=== PATIENT | female | born 1955 | race Caucasian/White ===

== ENCOUNTER → 2020-09-14 14:05 | Outpatient (BNVA) | payer OTHER, SELFPAY | PROVIDERS: Visit Provider Internal Medicine | DX: B19.10 Unspecified viral hepatitis B without hepatic coma (principal) | CPT/HCPCS: 99212 ==

== ENCOUNTER 2020-11-25 09:50 | Outpatient (REF) | payer OTHER, SELFPAY ==
--- NOTE | 2020-11-25 09:54 | US_ITS ---
EXAMINATION: US COMPLETE ABDOMEN WITH LIVER ELASTOGRAPHY CLINICAL INFORMATION: Viral hepatitis B without hepatic coma. COMPARISON: Ultrasound abdomen 06/27/2019. TECHNIQUE: Real-time imaging of the abdominal viscera. Noninvasive ultrasound liver fibrosis assessment is performed using Michel ElastPQ point quantification shear wave elastography (pSWE) with a 5 MHz transducer. Multiple elastography samples are obtained. FINDINGS: PANCREAS: Normal. The visualized pancreatic head and body are normal in appearance. The remainder of the pancreas is obscured from visualization by the overlying bowel gas. ABDOMINAL AORTA: The proximal, middle, and distal aortic segments are normal in caliber. INFERIOR VENA CAVA: Visualized portions are normal. LIVER: The liver demonstrates normal size, contour and echogenicity. No focal lesion or intrahepatic biliary duct dilatation. The right lobe measures 12.1 cm in length. The left lobe measures 11.7 cm in length. There is normal hepatopedal flow seen in main portal vein. There is a heterogenous lesion in the left hepatic lobe measuring 1.2 x 0.8 x 1.3 cm, new since the previous study. Shear wave elastography provides a median stiffness of 1.06 m/s (reference: normal median stiffness is 0.81 - 1.22 m/s). The IQR/median stiffness to assess sampling precision is 0.13 (reference: optimal IQR/median stiffness is under 0.3). GALLBLADDER: Normal. The gallbladder is physiologically distended without evidence of stones, sludge, polyps, wall thickening or pericholecystic fluid. COMMON BILE DUCT: Normal in caliber measuring 0.82 cm in diameter. RIGHT KIDNEY: There are 3 anechoic cysts seen. 1. A 2.4 x 2.2 x 2.1 cm upper pole. 2. A 4.1 x 3.3 x 3.4 cm midpole. 3. A 0.5 x 0.5 x 0.6 cm lower pole cyst. No hydronephrosis. No renal calculi or focal parenchymal lesions. The kidney measures 10.9 cm in maximum dimension. LEFT KIDNEY: Small cyst lower pole measuring 0.5 x 0.3 x 0.5 cm. No hydronephrosis. No renal calculi or focal parenchymal lesions. The kidney measures 9.8 cm in maximum dimension. SPLEEN: Normal. The spleen measures 7.5 cm in maximum dimension. FREE FLUID: None. US/US abdomen comp w elastography IMPRESSION: 1. Hyperechoic lesion left hepatic lobe. Question complex cyst. Multiple right renal cysts. 2. Elastography: Liver elastography measurements are within normal (METAVIR Stage F0).
== END 2020-11-25 09:51 | disposition home or self-care (01) ==
LOC: HO.US 09:50
PROVIDERS: Visit Provider Internal Medicine
DX: B19.10 Unspecified viral hepatitis B without hepatic coma (principal)
CPT/HCPCS: 76705; 76981

== ENCOUNTER 2025-11-11 10:06 | Outpatient (AMB) | payer OTHER, SELFPAY ==
[2025-11-11 10:10] VITALS: BMI 30.5
--- NOTE | 2025-11-11 10:10 | A.PHYSOV_ITS ---
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 Patient is having lower back pain. Machine Skiver Required: No Allergies morphine (MORPHINE) Allergy (Severe, Verified 11/11/25 10:11) ANAPHYLAXIS oxycodone (From Percocet) Allergy (Mild, Verified 11/11/25 10:11) ITCHING HPI Comments Details: History of Present Illness The patient is a 70-year-old female presenting for evaluation of intermittent back and sciatic nerve pain. She reports having these on-and-off problems since a work injury a long time ago. The last episode of significant pain was about a week ago. Past treatments include physical therapy, career and guidance counselor, and two injections, which she reports were not helpful. For self-management of pain, she lies down and uses pain patches given to her by her sister. Her symptoms are worse with activity and improved with rest. We do have MRI of the lumbar spine reported below. Patient reports marked improvement of her symptoms at this time. I reviewed the referring provider's no prior to consultation. Pain Description - Onset: The patient reports the pain started a long time ago after a work injury and has been intermittent since. - Location: Pain is primarily located in her low back. - Radiation: The pain radiates down her right leg. - Severity: The patient describes her current pain as - Exacerbating Factors: Bending forward causes pain, while bending backward causes discomfort. - Relieving Factors: She lies down to alleviate the pain. Results - MRI Lumbar Spine (10/06): Findings reveal a very good condition with very mild degenerative disc disease, very tiny disc bulges without nerve impingement, and a little bit of arthritis. [facility] Medical History (Updated 11/11/25 @ 11:49 by CARLOS Taylor) Hepatitis B Social History (Updated 11/11/25 @ 10:12 by Qing Smith MA) Alcohol intake: current Alcohol intake frequency: does not drink Patient Tobacco Use Status: Never used Tobacco Review of Systems Narrative Review of Systems - Musculoskeletal: Reports intermittent low back pain. - Neurological: Reports sciatic pain that radiates down the right leg. - Genitourinary: Denies groin pain, but notes it can occur when back pain is severe and wraps around. Physical Exam Exam Exam: Physical Exam Lumbar Spine: Examination of her lumbar spine, she is tender to the right lower lumbar facets and right sacroiliac joint. She has full range of motion of the lumbar spine with pain. She does have an increase in pain with facet loading. Special Tests: Lhermittes sign was negative Heel Toe walk is normal Left straight leg raise: Negative Right straight leg raise: Negative Special tests Jeremi test is positive right Ganslen's test is positive right SI Joint compression test positive right Sami test negative Piriformis stretch is negative Lower Extremities: Full range of motion bilateral lower extremities. No calf pain or edema. Neuro: Sensation: Intact to lower extremities bilaterally Strength L2 (Psoas): 5/5 on the left and 5/5 on the right. L3 (Quads): 5/5 on the left and 5/5 on the right. L4 (Ant tibialis): 5/5 on the left and 5/5 on the right. L5 (EHL) 5/5 on the left and 5/5 on the right. S1 (Gastroc): 5/5 on the left and 5/5 on the right. DTR L4: (Patellar) Left 2 Right 2 S1: (Achilles) Left 2 Right 2 Babinski Downgoing No pathologic clonus. No involuntary movement. Vital Signs: BMI result Body Mass Index 30.5 Assessment & Plan Assessment & Plan (1) Sacroiliitis: Code(s): M46.1 - Sacroiliitis, not elsewhere classified Category: Medical (2) Lumbar spondylosis: Code(s): M47.816 - Spondylosis without myelopathy or radiculopathy, lumbar region Category: Medical Plan Pain Management - Analgesia: The patient currently uses patches for pain relief and lies down when experiencing pain. - Activities of Daily Living: When the pain is severe, she is unable to bend backward. Plan Patient was informed and verbally consented to the use of an ambient scribe for clinic note documentation during this visit. 1. Low Back Pain With Right-Sided Sciatica The patient's recent lumbar MRI from October 06 was reviewed and shows a spine in very good condition, with only mild degenerative disc disease and tiny disc bulges that do not impinge on any nerves. Based on physical exam findings of localized tenderness, the pain is suspected to be originating from the right sacroiliac (SI) joint, possibly due to arthritis. As the patient is feeling well currently, she has opted to monitor her symptoms. She was advised to return to the clinic for further management if the pain returns. Discussed future treatment options including conservative measures like physical therapy, career and guidance counselor, and medications, as well as a potential SI joint injection. Discussion Notes I reviewed the patient's lumbar MRI from October 06 and explained that her spine is in very good condition with only mild degenerative changes and tiny disc bulges, which are not compressing any nerves. I informed her that while the MRI is reassuring, I acknowledge her pain and suspect it may be originating from her right sacroiliac (SI) joint due to tenderness on examination and possible developing arthritis. I discussed various treatment options, including conservative management like Tylenol, anti-inflammatories, physical therapy, and career and guidance counselor. I also mentioned the possibility of an SI joint injection in the future if she has a severe flare-up, noting that her previous unsuccessful injections may not have targeted the correct area. I reassured her that surgery is not indicated. The patient decided to monitor her symptoms for now since she is currently feeling well. I advised her to return if her pain worsens, at which point we can re-evaluate and proceed with a plan that aligns with her preferences, whether it be therapy, medication, or other options. Patient Instructions - Your recent MRI of your back shows that your spine is in very good shape. - We believe your pain is most likely coming from a joint in your lower back and buttock area called the sacroiliac (SI) joint. - Since you are feeling better today, we will wait and see how you do. - Please come back to the clinic if your pain gets worse. - When you return, we can discuss treatment options like physical therapy, career and guidance counselor, medications, or an injection to help your pain. - We will work with you to decide on a treatment plan you are comfortable with. Coding Level of Care Code New Pt Level 4 (70358) Diagnoses Sacroiliitis M46.1 Lumbar spondylosis M47.816
--- OUTSIDE RECORDS SUMMARY | 2025-11-11 13:21 | XMS_ITS | Clinical Summary ---
Author Organization [facility] Address [address] [place] [phone] Phone Care Team Providers Care Operating Room Aide Name Role Phone Moises Howard MD Primary Care Provider [phone] Allergies Active Allergy Reactions Criticality Noted Date Comments Codeine 01/19/2021 Upset stomach Morphine Other,Unknown 01/19/2021 Pt states she stops breathing Oxycodone-Acetaminophen Itching 04/23/2025 Medications acetaminophen (TYLENOL 8 HOUR) 650 mg 8 hr tablet Take 1 tablet (650 mg total) by mouth. 1 Active albuterol HFA (PROAIR HFA ; PROVENTIL HFA ; VENTOLIN HFA) 90 mcg/actuation inhaler Inhale 2 puffs by mouth every 4 (four) hours if needed for wheezing or shortness of breath. every 4 to 6 hours as needed 5 Active bisacodyL (DULCOLAX) 5 mg EC tablet Take 1 tablet (5 mg total) by mouth 1 (one) time each day if needed. 3 Active butalbital-acet aminophen-caffe ine (ESGIC) 50-325-40 mg per capsule Take 1 capsule by mouth Every 4 hours as needed. 3 Active cetirizine (ZyrTEC) 10 mg tablet Take 1 tablet (10 mg total) by mouth 1 (one) time each day. Active cyclobenzaprine (FLEXERIL) 5 mg tablet Take 1 tablet (5 mg total) by mouth 2 (two) times a day. 3 Active Auvelity 45-105 mg tablet, IR and ER, biphasic take 1 tablet by mouth every day in the morning for 90 days 5 Active escitalopram (Lexapro) 20 mg tablet Take 1 tablet (20 mg total) by mouth 1 (one) time each day. 0 Active fluticasone propionate (FLONASE) 50 mcg/actuation nasal spray Administer 2 sprays into each nostril 1 (one) time each day. Active Breo Ellipta 100-25 mcg/dose inhaler Inhale 1 puff by mouth 1 (one) time each day. Active LORazepam (ATIVAN) 0.5 mg tablet Take 1 tablet (0.5 mg total) by mouth 2 (two) times a day if needed for anxiety. 5 Active pantoprazole (PROTONIX) 40 mg EC tablet Take 1 tablet (40 mg total) by mouth 1 (one) time each day before breakfast. Active propranoloL (INDERAL) 80 mg tablet Take 1 tablet (80 mg total) by mouth 2 (two) times a day. Active sertraline (ZOLOFT) 50 mg tablet Take 1 tablet (50 mg total) by mouth 1 (one) time each day. Active SUMAtriptan (IMITREX) 50 mg tablet Take 1 tablet (50 mg total) by mouth 1 (one) time if needed. Active Mounjaro 5 mg/0.5 mL injection Inject 0.5 mL (5 mg total) under the skin every 7 (seven) days. Active topiramate (TOPAMAX) 50 mg tablet Take 1 tablet (50 mg total) by mouth 1 (one) time each day. Active amoxicillin (AMOXIL) 500 mg capsule 1 capsule (500 mg total) every 8 hours. 5 Active Lubricant Eye Drops 0.5 % ophthalmic solution Administer 1 drop into both eyes 2 (two) times a day. 5 Active ciprofloxacin-d exAMETHasone (CIPRODEX) otic suspension TAKE 4 DROPS INTO BOTH EARS EVERY 12 HOURS FOR 7 DAYS 5 Active Restasis 0.05 % ophthalmic emulsion Administer 1 drop into both eyes 2 (two) times a day. 5 Active montelukast (SINGULAIR) 10 mg tablet TAKE 1 TABLET BY MOUTH EVERY DAY; Duration: 90 0 Active Active Problems Problem Noted Date Diagnosed Date Amnesia 06/16/2025 Anemia due to vitamin B12 deficiency 06/16/2025 Class 1 obesity 06/16/2025 Migraine without aura and responsive to treatmen t 06/16/2025 Osteoarthritis of knee 06/16/2025 Acute non-recurrent frontal sinusitis 04/23/2025 Acute pharyngitis 04/23/2025 Acute right-sided low back pain with right-sided sciatica 04/23/2025 Adjustment reaction with anxiety and depression 04/23/2025 Ataxia 04/23/2025 Chronic rhinitis 04/23/2025 Cough 04/23/2025 Daytime somnolence 04/23/2025 Diverticulitis 04/23/2025 Vertigo 04/23/2025 Generalized anxiety disorder 04/23/2025 Hypothyroidism 04/23/2025 Lower abdominal pain 04/23/2025 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 Dr. Drake reviewed patient's MRI, then came in and saw the patient today, explained the treatment for this problem would be L4-5, L5-S1 fusion. Patient describes her back and right >left radicular pain as moderate overall, 5-8/10 on an average day, not significantly limiting her daily activities where she would consider surgery at this time. We talked about trying acupuncture, aquatic therapy, weight loss, core strengthening. She would like to pursue conservative treatments. I reviewed patient's MRI with her on the computer as well. She also has significant bilateral knee pain, previous diagnosis and treatment for knee osteoarthritis, she is considering cortisone injections in the knees. Chest pain 01/19/2021 Overview (04/23/2025): Last Assessment & Plan: The patient continues with occasional episodes of atypical chest discomfort. Exercise stress test and echocardiogram did not reveal significant abnormalities. Given the description of her symptoms and the cardiac test results, there is a low probability that her symptoms are due to ischemic heart disease. It is more likely that her symptoms are due to musculoskeletal chest discomfort. No further cardiac testing is needed at this time. Essential hypertension 01/19/2021 Overview (04/23/2025): Last Assessment & Plan: The patient has a history of arterial hypertension. The patient's blood pressure today was noted to be well controlled. We'll continue the current antihypertensive medication regimen. Palpitations 01/19/2021 Overview (04/23/2025): Last Assessment & Plan: The patient continues with occasional episodes of palpitations. Her episodes of palpitations last for several seconds per episode. She underwent a Holter monitor that showed rare PACs and one 3 beat atrial run. It is likely that her palpitations are due to symptomatic PACs. The patient is already on beta-krish therapy with propanolol. I had a conversation with the patient regarding the possible triggers of symptomatic PACs, including: Cigarette smoking, alcohol consumption, caffeine, stress, and inadequate sleep. The patient will attempt to address the risk factors for symptomatic PVCs. Otherwise, we will continue her current therapy with propanolol. Dizziness 01/18/2021 Hyperglycemia 09/02/2013 Hyperlipidemia 09/02/2013 Overview (04/23/2025): Last Assessment & Plan: The patient was noted with mild hyperlipidemia. Her last lipid panel showed a total cholesterol of 210, triglycerides 142, HDL 69, and LDL 113. Lifestyle modifications were encouraged during today's visit. I will repeat her lipid panel on her next appointment in order to determine if she needs to be considered for statin therapy. Encounters Date Type Department Care Team Description 10/22/2025 10:19 AM EST - 10/22/2025 11:59 PM EST Hospital Encounter [facility] Ultrasound [address] [place] [address] Thyroid nodule Discharge Disposition: Home or Self Care 10/07/2025 10:48 AM EST - 10/07/2025 11:59 PM EST Hospital Encounter [facility] Ultrasound [address] [place] [address] Discharge Disposition: Home or Self Care 10/06/2025 6:53 PM EST - 10/06/2025 11:59 PM EST Hospital Encounter [facility] MRI [address] [place] [address] Radiculopathy, lumbar region Discharge Disposition: Home or Self Care 08/25/2025 2:20 PM EDT - 08/25/2025 11:59 PM EDT Hospital Encounter [facility] Bone Density [address] [place] [address] Encounter for screening for osteoporosis Discharge Disposition: Home or Self Care 08/20/2025 7:56 AM EDT - 08/20/2025 11:59 PM EDT Hospital [facility] [address] [phone] Encounter for screening mammogram for breast cancer Discharge Disposition: Home or Self Care from Last 3 Months Immunizations Immunization Administration Dates Next Due Influenza Quadravalent, [place] mbinant, 0.5ml, preservative free (Flublok) 18yo and older 08/04/2020 Influenza trivalent, with pr eservative (Fluzone; Afluria) 6mo and older 10/04/2022,08/20/2013 Surgical History Surgery Date Site/Laterality Comments HYSTERECTOMY PROCEDURE: HISTORICAL HYSTERECTOMY CHOLECYSTECTOMY N/A PROCEDURE: HISTORICAL CHOLECYSTECTOMY; COMMENT: Gallbladder surgery BACK SURGERY 05/12/2017 Right PROCEDURE: HISTORICAL BACK SURGERY; COMMENT: Right L4-5 discectomy, Dr. Drake BACK SURGERY Right PROCEDURE: HISTORICAL BACK SURGERY; COMMENT: right L5-S1 discectomy (? 2012) Medical History Medical History Date Comments Seasonal allergies DX:Seasonal a llergies Depression DX:Depression HTN (hypertension) DX:HTN (hyper tension) Migraine DX:Migraine; COM MENT: chronic, botox with Dr Barcenas, helps approx 8 weeks. Mild intermittent asthma, uncomplicated DX:Mild intermittent asthma, uncomplicated; COMMENT: allergy season typically Diverticulosis DX:Diverticulosi s Family History Medical History Relation Name Comments Hypertension Father Other: heart disease Maternal Grandfather Breast cancer Mother Diabetes Mother Other: heart disease Mother Relation Name Status Comments Father Alive Maternal Grandfather Mother Alive Social History Tobacco Use Types Packs/Day Years Used Date Smoking Tobacco: Never Smokeless Tobacco: Never Tobacco Cessation:Counseling Given: Not Answered Alcohol Use Standard Drinks/Week Comments No 0 (1 standard drink = 0.6 oz pur e alcohol) Comments No Sex and Gender Information Value Date Recorded Sex Assigned at Female 03/31/2025 2:42 PM EDT Legal Sex Female 8:51 AM EST Gender Identity Female 03/31/2025 2:42 PM EDT Sexual Orientation Not on file Obstetrics History Para Term AB IAB SAB Ectopic Multiple Livin g Live Births 6 Last Filed Vital Signs Vital Sign Reading Time Taken Comments Blood Pressure 128/72 06/16/2025 2:19 PM EDT Pulse 80 06/16/2025 2:19 PM EDT Temperature 36.1 C (97 F) 06/16/2025 2:19 PM EDT Respiratory Rate 20 06/16/2025 2:19 PM EDT Oxygen Saturation 98% 06/16/2025 2:19 PM EDT Inhaled Oxygen Concentration - - Weight 80.7 kg (178 lb) 08/20/2025 8:34 AM EDT Height 162.6 cm (5' 4 ) 08/20/2025 8:34 AM EDT Body Mass Index 30.55 08/20/2025 8:34 AM EDT Plan of Treatment Upcoming Encounters Date Type Department Care Team (Late st Contact Info) Description 11/20/2025 9:30 AM EST Office Visit Neurosurgery [facility] [address] [place] [address] Keyshawn Reno PA [address] [place] [address] Health Maintenance Due Date Last Done Comments Colorectal Cancer Screening: Colonoscopy 1955 Drug Screen 1955 Non-Opioid Controlled Substance Agreement 1955 DTaP,Tdap,and Td Vaccines (1 - Tdap) 1976 Pneumococcal Vaccine: 50+ Years (1 of 1 - PCV) 2007 Zoster Vaccines (1 of 2) 2007 Cholesterol Screening (Lipid Panel) 10/16/2022 08/21/2013 Falls Risk Assessment 10/16/2022 Hepatitis C Screening 10/16/2022 Medicare Annual Wellness Visit 10/16/2022 Social Influencers of Health Screening 10/16/2022 Depression Screening 11/13/2024 COVID-19 Vaccine (3 - 2024-2 6 season) 2025 02/28/2021, 02/07/2021 Influenza Vaccine (#1) 2025 , 08/04/2020, 08/20/2013 Hypertension/CHF/CAD Annual BMP Blood Test 06/03/2026 06/03/2025, 08/21/2013 Breast Cancer Screening 08/20/2027 08/20/2025 RSV Immunization Adult Patients (1 - 1-dose 75+ series) 2032 Osteoporosis Screening (Bone Density Screening) 08/25/2035 08/25/2025 HIB Vaccines Aged Out No longer eligi ble based on patient's age to complete this topic HPV Vaccines Aged Out No longer eligi ble based on patient's age to complete this topic Hepatitis A Vaccines Aged Out No long er eligible based on patient's age to complete this topic Hepatitis B Vaccines Aged Out No long er eligible based on patient's age to complete this topic IPV Vaccines Aged Out No longer eligi ble based on patient's age to complete this topic MMR Vaccines Aged Out No longer eligi ble based on patient's age to complete this topic Meningococcal ACWY Vaccine Aged Out N o longer eligible based on patient's age to complete this topic Meningococcal B Vaccine Aged Out No l onger eligible based on patient's age to complete this topic RSV Immunization Patients Under 20 months Aged Out No longer eligible b ased on patient's age to complete this topic Varicella Vaccines Aged Out No longer eligible based on patient's age to complete this topic Procedures Procedure Name Priority Date/Time Associated Diagnosis Comments US GUIDED FINE NDL ASP 1ST LESION Routine 10/22/2025 11:23 AM EST Thyroid nodule FINE NEEDLE ASPIRATION Routine 10/22/2025 10:55 AM EST Thyroid nodule US HEAD NECK SOFT TISSUE STAT 10/07/2025 11:17 AM EST Nontoxic multinodular goiter MR LUMBAR SPINE WO CONTRAST Routine 10/06/2025 7:53 PM EST Radiculopathy, lumbar region BD BONE DENSITY DXA AXIAL SKELETON Routine 08/25/2025 2:50 PM EDT Encounter for screening for osteoporosis MG MAMMO DIGITAL SCREENING W EB BILAT Routine 08/20/2025 8:37 AM EDT Encounter for screening mammogram for breast cancer COMPREHENSIVE METABOLIC PANEL Routine 06/03/2025 9:36 AM EDT Vitamin B12 deficiency anemia Routine general medical examination at a [facility] Screening for thyroid disorder from Last 3 Months or Most Recently Relevant to Health Maintenance Results * US Guided Fine Ndl Asp 1st Lesion (10/22/2025 11:23 AM EST) Anatomical Region Laterality Modality Ultrasound 10/22/2025 1:13 PM EST Narrative 10/29/2025 12:16 PM EST INDICATION: 11 x 7 x 8 mm left lower pole nodule, TI RADS 5 TECHNIQUE: Written informed consent obtained. Patient placed supine on the ultrasound stretcher. Multiple images obtained of the left thyroid. After review of the images, the appropriate area of skin was localized under real-time ultrasound. This region was draped and prepped in the usual sterile fashion. 2% buffered lidocaine was used as a local anesthetic. Under real-time ultrasound guidance, needle biopsy was performed using FNA technique. A total of 3 passes were obtained. . Preliminary pathology demonstrates adequate sampling. Final pathology pending. The patient tolerated the procedure well and left the department in stable condition without immediate complications. FINDINGS: Direct comparison made to study from US head neck soft tissue October 07, 2025 CONCLUSION: Ultrasound-guided biopsy of left thyroid nodule as described above. -------- FINAL REPORT -------- Dictated By: Roselia Amado Dictated Date: 10/22/2025 13:13 ET Assigned Physician: Ashutosh Rodriguez Reviewed and Electronically Signed By: Ashutosh Rodriguez Signed Date: 10/29/2025 12:16 ET Workstation ID: [id number] Transcribed By: Self Edit Transcribed Date: 10/22/2025 13:15 ET Resident/PA/EVENT OPERATIONS MANAGER: Roselia Amado Procedure Note Ashutosh Rodriguez MD - 10/29/2025 INDICATION: 11 x 7 x 8 mm left lower pole nodule, TI RADS 5 TECHNIQUE: Written informed consent obtained. Patient placed supine on theultrasound stretcher. Multiple images obtained of the left thyroid. Afterreview of the images, the appropriate area of skin was localized underreal-time ultrasound. This region was draped and prepped in the usualsterile fashion. 2% buffered lidocaine was used as a local anesthetic.Under real-time ultrasound guidance, needle biopsy was performed using FNAtechnique. A total of 3 passes were obtained. . Preliminary pathologydemonstrates adequate sampling. Final pathology pending. The patienttolerated the procedure well and left the department in stable conditionwithout immediate complications. FINDINGS: Direct comparison made to study from US head neck soft tissueNovember 2024 CONCLUSION: Ultrasound-guided biopsy of left thyroid nodule as described above. -------- FINAL REPORT -------- Dictated By: Roselia Amado Dictated Date: 10/22/2025 13:13 ET Assigned Physician: Ashutosh Rodriguez Reviewed and Electronically Signed By: Ashutosh Rodriguez Signed Date: 10/29/2025 12:16 ET Workstation ID: [id number] Transcribed By: Self Edit Transcribed Date: 10/22/2025 13:15 ET Resident/PA/EVENT OPERATIONS MANAGER: Roselia Amado us Kay Lanza NP IMG US PROCEDURES Final Resul t * Fine needle aspiration (10/22/2025 10:55 AM EST) Final Diagnosis A. Thyroid, Left mid thyroid nodule -fine needle aspiration, (ThinPrep, direct smears): Benign ([place] Category II). Consistent with chronic lymphocytic (Rusty) thyroiditis in the proper clinical context. 10/23/2025 12:[address] [facility] at 1212 EST Specimen A Adequacy Satisfactory for evaluation 10/23/2025 12:[address] [facility] Gross Description A. Thyroid, Left, Left mid thyroid nodule: Received in Cytolyt is 30 ml of pink cloudy fluid. One ThinPrep is made. Also received are 3 air dried direct smears, and 3 alcohol fixed smears. jr 10/23/2025 12:[address] [facility] Intraoperative Consultation A. Thyroid, Left, Left mid thyroid nodule: Adequate. Cellular specimen with numerous lymphocytes. Dr. Smith communicated with Roselia Amado via [employer] 10/22/2025 11:27 AM EST 10/23/2025 12:[address] [facility] Comment:Corrected result: Pr eviously reported on 10/22/2025 at 1128 EST. Disclaimer Unless otherwise specified, all tissue is 10% NB formalin fixed and paraffin embedded. Technical cytopathology services provided by [facility], at [address] [place] [address] (CLIA # [id number]/Juan M Lopez MD, [employer]per.) 10/23/2025 12:[address] [facility] Fine Needle Aspirate Structure of left lobe of thyroid gland / Unknown 10/22/2025 10:55 AM EST 10/22/2025 11:16 AM EST us Kay Lanza EVENT OPERATIONS MANAGER LAB PATHOLOGY ORDERABLES Olivia l Result [facility] [address] [place] [address], * US Head Neck Soft Tissue (10/07/2025 11:17 AM EST) Anatomical Region Laterality Modality Head and Neck Ultrasound 10/07/2025 11:3 0 AM EST Impressions 10/07/2025 11:37 AM EST Increased in size of a now 11 mm TI RADS 5 nodule in the left lobe, for which ultrasound-guided fine-needle aspiration is recommended. Telerad PA ([id number]) -------- FINAL REPORT -------- Dictated By: Carin Guthrie Dictated Date: 10/07/2025 11:30 ET Assigned Physician: Carin Guthrie Reviewed and Electronically Signed By: Carin Guthrie Signed Date: 10/07/2025 11:37 ET Workstation ID: [id number] Transcribed By: Self Edit Transcribed Date: 10/07/2025 11:30 ET Narrative 10/07/2025 11:37 AM EST HISTORY: Nontoxic multinodular goiter. 6 month follow-up. COMPARISON: 04/02/25 FINDINGS: High resolution real-time imaging of the thyroid gland was performed. RIGHT LOBE: The right lobe remains normal in size, measuring 3.3 cm in length by 1.5 cm in depth by 1.5 cm in width. A 6 x 5 x 5 mm circumscribed, predominately solid mildly hypoechoic nodule is seen in the upper pole, equivocally seen in retrospect on the previous study (TI RADS 4). LEFT LOBE: The left lobe is normal in size, measuring 3.7 cm in length by 1.0 cm in depth by 1.5 cm in width. Again seen is a solid, markedly hypoechoic nodule in the lower pole measuring 11 x 7 x 8 mm (8 x 6 x 6 mm on the previous study). The nodule has an antiparallel configuration (tall than wide) and has lobulated margins. No extrathyroidal extension is seen. (TI RADS 5). A circumscribed 6 x 4 x 6 mm solid, hypoechoic nodule is seen in the upper pole, without significant change (TI RADS 4). ISTHMUS: The isthmus is normal in thickness, measuring 0.3 cm. Procedure Note Carin Guthrie MD - 10/07/2025 HISTORY: Nontoxic multinodular goiter. 6 month follow-up. COMPARISON: 04/02/25 FINDINGS: High resolution real-time imaging of the thyroid gland was performed. RIGHT LOBE: The right lobe remains normal in size, measuring 3.3 cm in length by 1.5cm in depth by 1.5 cm in width. A 6 x 5 x 5 mm circumscribed, predominately solid mildly hypoechoic noduleis seen in the upper pole, equivocally seen in retrospect on the previousstudy (TI RADS 4). LEFT LOBE: The left lobe is normal in size, measuring 3.7 cm in length by 1.0 cm indepth by 1.5 cm in width. Again seen is a solid, markedly hypoechoic nodule in the lower polemeasuring 11 x 7 x 8 mm (8 x 6 x 6 mm on the previous study). The nodulehas an antiparallel configuration (tall than wide) and has lobulatedmargins. No extrathyroidal extension is seen. (TI RADS 5). A circumscribed 6 x 4 x 6 mm solid, hypoechoic nodule is seen in the upperpole, without significant change (TI RADS 4). ISTHMUS: The isthmus is normal in thickness, measuring 0.3 cm. IMPRESSION: Increased in size of a now 11 mm TI RADS 5 nodule in the left lobe, forwhich ultrasound-guided fine-needle aspiration is recommended. Telerad CARLOS ([id number]) -------- FINAL REPORT -------- Dictated By: Carin Guthrie Dictated Date: 10/07/2025 11:30 ET Assigned Physician: Carin Guthrie Reviewed and Electronically Signed By: Carin Guthrie Signed Date: 10/07/2025 11:37 ET Workstation ID: [id number] Transcribed By: Self Edit Transcribed Date: 10/07/2025 11:30 ET us Kay Lanza NP IMG US PROCEDURES Final Resul t * MR Lumbar Spine wo Contrast (10/06/2025 7:53 PM EST) Anatomical Region Laterality Modality L-spine, Spine Magnetic Resonan ce 10/14/2025 8:03 AM EST Impressions 10/14/2025 9:23 AM EST Degenerative changes, most prominent at L4-5 and L5-S1, without high-grade spinal or foraminal stenosis. -------- FINAL REPORT -------- Dictated By: Tim Bryan Dictated Date: 10/14/2025 08:03 ET Assigned Physician: Tim Bryan Reviewed and Electronically Signed By: Tim Bryan Signed Date: 10/14/2025 09:23 ET Workstation ID: [id number] Transcribed By: Self Edit Transcribed Date: 10/14/2025 08:47 ET Narrative 10/14/2025 9:23 AM EST PROCEDURE: MRI of the lumbar spine without contrast. TECHNIQUE: Multiplanar multisequence MRI of the lumbar spine without intravenous contrast administration. HISTORY: Radiculopathy COMPARISON: CT abdomen and pelvis 07/09/2022. FINDINGS: Several renal cortical cysts are partially visible. Partially visible sigmoid diverticulosis. No other paraspinous soft tissue findings. Alignment is normal. No compression deformity. No concerning marrow infiltrative lesion. Modic endplate signal at L4-5 and L5-S1. Normal position of the conus at L1-2. Lumbar disc levels: L1-2: No significant disc or facet abnormality. No spinal or foraminal stenosis. L2-3: Minimal bilateral facet arthropathy. No spinal or foraminal stenosis. L3-4: Minimal endplate irregularity and minimal degenerative irregularity of the facet joints. No spinal or foraminal stenosis. L4-5: Mild disc space height loss and moderate endplate irregularity. Small symmetric disc bulge. Mild bilateral facet arthropathy. No spinal stenosis. Mild right greater than left foraminal stenosis. L5-S1: Mild disc space height loss and moderate endplate irregularity. Small right central focal protrusion. Mild bilateral facet arthropathy. No significant spinal or foraminal stenosis. Procedure Note Tim Bryan MD - 10/14/2025 PROCEDURE: MRI of the lumbar spine without contrast. TECHNIQUE: Multiplanar multisequence MRI of the lumbar spine withoutintravenous contrast administration. HISTORY: Radiculopathy COMPARISON: CT abdomen and pelvis 07/09/2022. FINDINGS: Several renal cortical cysts are partially visible. Partially visiblesigmoid diverticulosis. No other paraspinous soft tissue findings. Alignment is normal. No compression deformity. No concerning marrowinfiltrative lesion. Modic endplate signal at L4-5 and L5-S1. Normal position of the conus at L1-2. Lumbar disc levels: L1-2: No significant disc or facet abnormality. No spinal or foraminalstenosis. L2-3: Minimal bilateral facet arthropathy. No spinal or foraminalstenosis. L3-4: Minimal endplate irregularity and minimal degenerative irregularityof the facet joints. No spinal or foraminal stenosis. L4-5: Mild disc space height loss and moderate endplate irregularity.Small symmetric disc bulge. Mild bilateral facet arthropathy. No spinalstenosis. Mild right greater than left foraminal stenosis. L5-S1: Mild disc space height loss and moderate endplate irregularity.Small right central focal protrusion. Mild bilateral facet arthropathy.No significant spinal or foraminal stenosis. IMPRESSION: Degenerative changes, most prominent at L4-5 and L5-S1, without high-gradespinal or foraminal stenosis. -------- FINAL REPORT -------- Dictated By: Tim Bryan Dictated Date: 10/14/2025 08:03 ET Assigned Physician: Tim Bryan Reviewed and Electronically Signed By: Tim Bryan Signed Date: 10/14/2025 09:23 ET Workstation ID: [id number] Transcribed By: Self Edit Transcribed Date: 10/14/2025 08:47 ET us Kay Lanza NP IMG MRI PROCEDURES Final Resu lt * BD Bone Density DXA Axial Skeleton (08/25/2025 2:50 PM EDT) Anatomical Region Laterality Modality Wrist, Hip, L-spine Bone Densito metry 08/25/2025 4:42 PM EDT Impressions 08/25/2025 4:43 PM EDT Osteopenia. Telerad [place]OS ([id number]) -------- FINAL REPORT -------- Dictated By: Carin Guthrie Dictated Date: 08/25/2025 16:42 ET Assigned Physician: Carin Guthrie Reviewed and Electronically Signed By: Carin Guthrie Signed Date: 08/25/2025 16:43 ET Workstation ID: [id number] Transcribed By: Self Edit Transcribed Date: 08/25/2025 16:42 ET Narrative 08/25/2025 4:43 PM EDT History: Low estrogen state due to menopause. Chronic glucocorticoid use. Comparison: No comparison study at this institution. Findings: Bone densitometry is performed utilizing dual energy x-ray absorptiometry (DXA) in the [employer] Pro[employer] unit. The lumbar spine and proximal femora are evaluated in the AP projection. The FRAX questionaire was completed. The results indicate low bone mass (osteopenia), with a right femoral neck T- score of -1.8. The Z score is -1.4, indicating low bone mineral density for age. The detailed DEXA report will be mailed to the referring physician's office. DualFemur FRAX: 10-year Probability of Fracture: Major Osteoporotic 16.1 percent Hip 2.8 percent. Procedure Note Carin Guthrie MD - 08/25/2025 History: Low estrogen state due to menopause. Chronic glucocorticoiduse. Comparison: No comparison study at this institution. Findings: Bone densitometry is performed utilizing dual energy x-ray absorptiometry(DXA) in the [employer] Pro[employer] unit. The lumbar spine and proximal femora areevaluated in the AP projection. The FRAX questionaire was completed. The results indicate low bone mass (osteopenia), with a right femoral neckT- score of -1.8. The Z score is -1.4, indicating low bone mineral densityfor age. The detailed DEXA report will be mailed to the referringphysician's office. DualFemur FRAX: 10-year Probability of Fracture: Major Osteoporotic 16.1percent Hip 2.8 percent. IMPRESSION: Osteopenia. Telerad CARLOS ([id number]) -------- FINAL REPORT -------- Dictated By: Carin Guthrie Dictated Date: 08/25/2025 16:42 ET Assigned Physician: Carin Guthrie Reviewed and Electronically Signed By: Carin Guthrie Signed Date: 08/25/2025 16:43 ET Workstation ID: [id number] Transcribed By: Self Edit Transcribed Date: 08/25/2025 16:42 ET us Kay Lanza EVENT OPERATIONS MANAGER IMG DXA PROCEDURES Final Resu lt * MG Mammo Digital Screening w Eb bilat (08/20/2025 8:37 AM EDT) Anatomical Region Laterality Modality Breast Bilateral Mammography 08/21/2025 1:40 PM EDT Impressions 08/21/2025 2:42 PM EDT No mammographic evidence of malignancy. No suspicious interval change. A negative mammogram in the presence of a clinically suspicious palpable abnormality does not preclude the possibility of malignancy or alter the indications for biopsy. ASSESSMENT: BI-RADS 2: BENIGN RECOMMENDATION(S): 1: Routine screening mammogram BILATERAL in 1 year. Mamm[facility] location: [facility] [address], [address] -------- FINAL REPORT -------- Dictated By: Eric Aaron Dictated Date: 08/21/2025 13:40 ET Assigned Physician: Eric Aaron Reviewed and Electronically Signed By: Eric Aaron Signed Date: 08/21/2025 14:42 ET Workstation ID: [id number] Transcribed By: Self Edit Transcribed Date: 08/21/2025 13:40 ET Narrative 08/21/2025 2:42 PM EDT EXAM: SCREENING MAMMOGRAPHY, BILATERAL HISTORY: SCREENING. Mother with history of breast cancer. COMPARISON: 07/11/22, 05/08/20, 12/28/18 TECHNIQUE: Synthesized CC and MLO projections of each breast. Tomosynthesis of each breast in the CC and MLO projections. ADDITIONAL IMAGING: None Computer-aided detection was employed with the [employer] AI 3-D. TISSUE DENSITY: There are scattered areas of fibroglandular density. (BI-RADS category B) FINDINGS: RIGHT BREAST: No suspicious mass. No suspicious calcification. No distortion. Unchanged intramammary lymph node in the 10 o'clock position. No additional suspicious right breast findings LEFT BREAST: No suspicious mass. No suspicious calcification. No distortion. Unchanged intramammary lymph node in the 5 o'clock position. No additional suspicious left breast findings Procedure Note Eric Aaron MD - 08/21/2025 EXAM: SCREENING MAMMOGRAPHY, BILATERAL HISTORY: SCREENING. Mother with history of breast cancer. COMPARISON: 07/11/22, 05/08/20, 12/28/18 TECHNIQUE: Synthesized CC and MLO projections of each breast.Tomosynthesis of each breast in the CC and MLO projections. ADDITIONAL IMAGING: None Computer-aided detection was employed with the [employer] AI 3-D. TISSUE DENSITY: There are scattered areas of fibroglandular density.(BI-RADS category B) FINDINGS: RIGHT BREAST: No suspicious mass. No suspicious calcification. No distortion. Unchanged intramammary lymph node in the 10 o'clock position. No additional suspicious right breast findings LEFT BREAST: No suspicious mass. No suspicious calcification. No distortion. Unchanged intramammary lymph node in the 5 o'clock position. No additional suspicious left breast findings IMPRESSION: No mammographic evidence of malignancy. No suspicious interval change. A negative mammogram in the presence of a clinically suspicious palpableabnormality does not preclude the possibility of malignancy or alter theindications for biopsy. ASSESSMENT: BI-RADS 2: BENIGN RECOMMENDATION(S): 1: Routine screening mammogram BILATERAL in 1 year. Mamm[facility] location: [facility] at [address], [address] -------- FINAL REPORT -------- Dictated By: Eric Aaron Dictated Date: 08/21/2025 13:40 ET Assigned Physician: Eric Aaron Reviewed and Electronically Signed By: Eric Aaron Signed Date: 08/21/2025 14:42 ET Workstation ID: [id number] Transcribed By: Self Edit Transcribed Date: 08/21/2025 13:40 ET us Self Referral Sppl IMG BI PROCEDURES Final Resul t * Comprehensive metabolic panel (06/03/2025 9:36 AM EDT) Sodium 140 133 - 145 mmol/L LAB CHEMISTRY METHOD 06/03/2025 12:[address] [facility] Potassium 4.3 3.5 - 5.5 mmol/L LAB CHEMISTRY METHOD 06/03/2025 12:[address] [facility] Chloride 108 96 - 110 mmol/L LAB CHEMISTRY METHOD 06/03/2025 12:32 PM [facility] CO2 26 21 - 32 mmol/L LAB CHEMISTRY METHOD 06/03/2025 12:32 PM [facility] Anion Gap 6 3 - 11 LAB CHEMISTRY METHOD 06/03/2025 12:32 PM [facility] Glucose 81 70 - 100 mg/dL LAB CHEMISTRY METHOD 06/03/2025 12:32 PM [facility] BUN 15 5 - 25 mg/dL LAB CHEMISTRY METHOD 06/03/2025 12:32 PM [facility] Creatinine 0.96 0.50 - 1.10 mg/dL LAB CHEMISTRY METHOD 06/03/2025 12:32 PM [facility] eGFR 65 >=60 mL/min/1. 73m2 LAB CHEMISTRY METHOD 06/03/2025 12:32 PM [facility] Comment:Calculation based on the Chronic Kidney Disease Epidemiology Collaboration (CKD-EPI) equation refit without adjustment for race. BUN/Creatinine Ratio 15.6 LAB CHEMISTRY METHOD 06/03/2025 12:32 PM [facility] Calcium 9.4 8.5 - 10.5 mg/dL LAB CHEMISTRY METHOD 06/03/2025 12:32 PM [facility] AST (SGOT) 12 10 - 42 unit/L LAB CHEMISTRY METHOD 06/03/2025 12:32 PM [facility] ALT (SGPT) 14 10 - 60 unit/L LAB CHEMISTRY METHOD 06/03/2025 12:32 PM [facility] Alkaline Phosphatase 89 42 - 121 unit/L LAB CHEMISTRY METHOD 06/03/2025 12:32 PM [facility] Total Protein 7.4 6.0 - 8.0 g/dL LAB CHEMISTRY METHOD 06/03/2025 12:32 PM [facility] Albumin 3.9 3.2 - 5.0 g/dL LAB CHEMISTRY METHOD 06/03/2025 12:[address] [facility] Total Bilirubin 0.3 0.0 - 1.4 mg/dL LAB CHEMISTRY METHOD 06/03/2025 12:[address] [facility] Blood Venous blood specimen / Unknown Venipuncture / Unknown 06/03/2025 9:36 AM EDT 06/03/2025 10:54 AM EDT us Kay Lanza EVENT OPERATIONS MANAGER LAB BLOOD ORDERABLES Final Re sult [facility] [address] [place] [address], from Last 3 Months or Most Recently Relevant to Health Maintenance Insurance [place] [address] MEDICARE Member Subscriber Plan / Payer (Ef fective 2023-Present) Name:REBECCA YING Relation to Subscriber:Self Name:Rebecca Ying I Payer ID:[id number] Group ID:[id number] Type:Not on file Address: [place] [address] [place] [phone] Care Teams Operating Room Aide Relationship Specialty Start Date End Date Moises Howard MD [address] [place] [id number] PCP - General Internal Medicine 03/31/25
--- OUTSIDE RECORDS SUMMARY | 2025-11-11 13:21 | XMS_ITS | Patient Health Record ---
Author Organization [facility] [address] Address [address] [place] [address] Care Team Providers Care Electrical Cad Technician Name Role Phone MALORIE LOZADA Unavailable [phone] DEANDREJESUS JONES Unavailable [phone] Allergies Allergen (clinical drug ingredient) Drug/Non Drug Allergy documented on EMR Reaction Allergy Type Onset Date Status morphine Morphine Sulfate Unknown Drug Allergy Active Results Component Value Reference Range Flag Notes MR LUMBAR SPINE WO CONTRAST Reviewed date:10/14/2025 09:36:18 AM Interpretation: Performing Lab: Notes/Report: See Note [facility], a member of [facility] PROCEDURE: MRI of the lumbar spine without [...] arthropathy. No significant spinal or foraminal stenosis. IMPRESSION: Degenerative changes, most prominent at L4-5 and L5-S1, without high-grade spinal or foraminal stenosis. -------- FINAL REPORT -------- Dictated By: Tim Bryan Dictated Date: 10/14/2025 08:03 ET Assigned Physician: Tim Bryan Reviewed and Electronically Signed By: Tim Bryan Signed Date: 10/14/2025 09:23 ET Workstation ID: [id number] Transcribed By: Self Edit Transcribed Date: 10/14/2025 08:47 ET US HEAD NECK SOFT TISSUE Reviewed date:10/07/2025 12:49:49 PM Interpretation: Performing Lab: Notes/Report: See Note [facility], a member of [employer] HISTORY: Nontoxic multinodular goiter. 6 month follow-up. [...] ultrasound-guided fine-needle aspiration is recommended. Telerad PA ([id number]) -------- FINAL REPORT -------- Dictated By: Carin Guthrie Dictated Date: 10/07/2025 11:30 ET Assigned Physician: Carin Guthrie Reviewed and Electronically Signed By: Carin Guthrie Signed Date: 10/07/2025 11:37 ET Workstation ID: [id number] Transcribed By: Self Edit Transcribed Date: 10/07/2025 11:30 ET US GUIDED FINE NDL ASP 1ST L ESION Reviewed date:10/29/2025 01:06:26 PM Interpretation: Performing Lab: Notes/Report: See Note [facility] a member of [employer] INDICATION: 11 x 7 x 8 mm [...] Signed Date: 10/29/2025 12:16 ET Workstation ID: [id number] Transcribed By: Self Edit Transcribed Date: 10/22/2025 13:15 ET Resident/PA/DIRECTOR OF SUSTAINABILITY: Roselia Amado BD BONE DENSITY DXA AXIAL SK [facility] Reviewed date:08/26/2025 07:47:24 AM Interpretation: Performing Lab: Notes/Report: Note See Note [facility], a member of [employer] Patient Name: REBECCA DIAZ Date of : 1955 Reason for Exam: post-menopausal osteoporosis prevention Exam Date: 08/25/2025 [id number] EST Report Status: Final Ordering Provider: JESUS CIFUENTES PCP: MALORIE LOZADA History: Low estroge n state due to menopause. Chronic glucocorticoid use. Comparison: No comparison study at this institution. Findings: Bone densitometry is performed utilizing dual energy x-ray absorptiometry (DXA) in the [employer] unit. The lumbar spine and proximal femora are evaluated in the AP projection. The FRAX questionaire was completed. The results indicate low bone mass (osteopenia), with a right femoral neck T-score of -1.8. The Z score is -1.4, indicating low bone mineral density for age. The detailed DEXA report will be mailed to the referring physician's office. [employer] FRAX: 10-year Probability of Fracture: Major Osteoporotic 16.1 percent Hip 2.8 percent. IMPRESSION: Osteopenia. Telerad CARLOS ([id number]) -------- FINAL REPOR T -------- Dictated By: Carin Gutrhie Dictated Date: 08/25/2025 16:42 ET Assigned Physician: Carin Guthrie Reviewed and Electronically Signed By: Carin Guthrie Signed Date: 08/25/2025 16:43 ET Workstation ID: [id number] Transcribed By: Self Edit Transcribed Date: 08/25/2025 16:42 ET TREPONEMA PALLIDUM ANTIBODY WITH REFLEX TO RPR AND PARTICLE AGGLUTINATION Reviewed date:06/03/2025 01:52:24 PM Interpretation: Performing Lab: Notes/Report: T. Pallidum Antibodies Negative Negative THYROID STIMULATING HORMONE Reviewed date:06/03/2025 01:45:22 PM Interpretation: Performing Lab: Notes/Report: TSH 2.27 0.40-4.00 mcIU/mL MR BRAIN WO CONTRAST Reviewed date:06/05/2025 10:02:21 AM Interpretation: Performing Lab: Notes/Report: Note See Note [facility], a member of [employer] Patient Name: REBECCA DIAZ Date of : 1955 Reason for Exam: encepalopathy Exam Date: 06/04/2025 [id number] EST Report Status: Final Ordering Provider: JESUS CIFUENTES PCP: MALORIE LOZADA PROCEDURE: Brain MRI INDICATION: Encephalopathy, syncope TECHNIQUE: Multiplanar, multisequence MRI of the brain without contrast COMPARISON: 03/23/2024 FINDINGS: No acute infarct, mass effect, or intracranial hemorrhage. Brain parenchyma is similar compared to prior and within normal limits. No abnormal intracranial susceptibility artifact. Sella and foramen magnum are normal. Major intracranial arterial flow voids are normal. Ventricles, sulci, and cisterns are normal in size configuration. No hydrocephalus. Sinuses and mastoid air cells are clear. Orbits and extracranial soft tissues are normal. Calvarium is normal. IMPRESSION: No acute findings. Stable exam compared to 2023. -------- FINAL REPOR T -------- Dictated By: FLTECHER ALLISON Dictated Date: 06/05/2025 09:15 ET Assigned Physician: FLETCHER ALLISON Reviewed and Electronically Signed By: FLETCHER ALLISON Signed Date: 06/05/2025 09:47 ET Workstation ID: [id number] Transcribed By: Self Edit Transcribed Date: 06/05/2025 09:15 ET FINE NEEDLE ASPIRATION Reviewed date:10/23/2025 12:50:01 PM Interpretation: Performing Lab: Notes/Report: Adequate. Cellular specimen with numerous lymphocytes. Dr. Smith communicated with Roselia Amado via [employer] 10/22/2025 11:27 AM EST Corrected result: Previously reported on 10/22/2025 at 1128 EST. Final Diagnosis A. Thyroid, Left mid thyroid nodule -fine needle aspiration, (ThinPrep, direct smears): Benign (Haynes Category II). Consistent with chronic lymphocytic (Rusty) thyroiditis in the proper clinical context. at 1212 EST Specimen A Adequacy Satisfactory for evaluation Gross Description A. Thyroid, Left, Left mid thyroid nodule: Received in Cytolyt is 30 ml of pink cloudy fluid. One ThinPrep is made. Also received are 3 air dried direct smears, and 3 alcohol fixed smears. jr Disclaimer Unless otherwise specified, all tissue is 10% NB formalin fixed and paraffin embedded. Technical cytopathology services provided by [facility], at [address] [place] [address], [place] [address] (CLIA # [id number]/Shon Lopez MD, [employer].) Intraoperative Consultation A. Thyroid, Left, Left mid thyroid nodule: METHYLMALONIC ACID, SERUM Reviewed date:06/06/2025 07:53:05 AM Interpretation: Performing Lab: Notes/Report: Methylmalonic Acid 0.33 <0.40 umol/L If applicable, any drug confirmation testing reported here was developed and the performance characteristics determined by [facility]. This confirmation testing has not been cleared or approved by the FDA. The laboratory is regulated under CLIA as qualified to perform high-complexity testing. This test is used for patient testing purposes. It should not be regarded as investigational or for research. Test performed at [facility], [address] , [place] [address] Lena Tejeda MD, PhD - [employer] HEAD NECK SOFT TISSUE Reviewed date:04/15/2025 01:19:10 PM Interpretation: Performing Lab: Notes/Report: Note See Note [facility], a member of [employer] Patient Name: REBECCA DIAZ Date of : 1955 Reason for Exam: NONTOXIC SINGLE THYROID NODULE Exam Date: 04/02/2025 [id number] EST Report Status: Final Ordering Provider: JESUS CIFUENTES PCP: MALORIE LOZADA HISTORY: Nontoxic single thyroid nodule TECHNIQUE: Grayscale assessment of the thyroid was performed with a high frequency linear transducer. COMPARISON: None FINDINGS: The right lobe of th e thyroid measures: 3.4 x 1.4 x 1.5 cm Previous measurement : No previous available Right lobe contour: The right lobe contour is smooth. Right lobe echogenicity: Heterogeneous with a few scattered calcifications and a few small areas of slightly altered echotexture. Right lobe vascularity: Normal The left lobe of the thyroid measures: 3.3 x 1.4 x 1.4 cm Previous measurement : No previous available Left lobe contour: The left lobe contour is smooth. Left lobe echogenicity: Heterogeneous Left lobe vascularity: Normal Isthmus measures (AP): 0.3 cm Previous measurement : No previous available Isthmus contour: The isthmic contour is smooth. Isthmus echogenicity : Heterogeneous Isthmus vascularity: Normal Masses: Heterogeneous gland with scattered small areas of slightly altered echotexture. Right lobe: No suspicious nodules Left lobe: Upper pole: There is a hypoechoi c oval mass with long axis parallel. No suspicious calcification. No suspicious color signal. No evidence of extrathyroidal extension 04/02/25-0.7 cm TR 3 Mid left lobe Markedly hypoechoic circumscribed nodule which is slightly antiparallel. Mild posterior enhancement. No suspicious calcification. No evidence of extrathyroidal extension. 04/02/25-0.6 cm TR 6 OTHER: Extrathyroidal extension: None Regional lymph nodes : No enlarged lymph nodes demonstrated IMPRESSION: Moderately suspiciou s 0.6 cm nodule in the mid left lobe. I do not have previous for comparison. Nodules of this type less than 1 cm should be reexamined with ultrasound in 6 months TI-RADS Assessment (updated February 2017) Composition: cystic or spongiform : 0 pt mixed cystic and solid: 1 pt solid or almost completely solid: 2 pts Echogenicity: anechoic: 0 pt hyperechoic or isoechoic: 1 pt hypoechoic: 2 pts very hypoechoic: 3 pt Shape: wider than tall: 0 pt taller than wide: 3 pts Margin: smooth: 0 pt ill-defined: 0 pt lobulated/irregular: 2 pts extra-thyroidal extension: 3 pts Echogenic foci none or large comet tail artifact: 0 pt macro-calcification: 1 pt peripheral/rim ca++: 2 pts punctate echogenic foci: 3 pts TR1: 0 pts; benign; no follow-up TR2: 2 pts; not suspicious; no FNA TR3: 3 pts; mildly suspicious; < or = 1.5 cm f/u; > or = 2.5 cm FNA TR4: 4-6 pts; moderately suspicious; < or = 1.0 cm follow-up; 1.5 cm FNA TR5: 7 or > pts; highly suspicious; .5-.9 cm f/u; 1.0 cm or > FNA -------- FINAL REPOR T -------- Dictated By: Eric Aaron Dictated Date: 04/04/2025 07:30 ET Assigned Physician: Eirc Aaron Reviewed and Electronically Signed By: Eric Aaron Signed Date: 04/04/2025 07:48 ET Workstation ID: [id number] Transcribed By: Self Edit Transcribed Date: 04/04/2025 07:36 ET VITAMIN B12 Reviewed date:06/03/2025 01:45:22 PM Interpretation: Performing Lab: Notes/Report: Vitamin B-12 402 250-900 pcg/mL MG MAMMO DIGITAL SCREENING W ZOEY BILAT Reviewed date:08/21/2025 04:10:04 PM Interpretation: Performing Lab: Notes/Report: Note See Note [facility] a member of [employer] Patient Name: REBECCA DIAZ Date of : 1955 Reason for Exam: Exam Date: 08/20/2025 [id number] EST Report Status: Final Ordering Provider: SELF REFERRAL SPPL PCP: MALORIE LOZADA EXAM: SCREENING MAMMOGRAPHY, BILATERAL HISTORY: SCREENING. Mother with history of breast cancer. COMPARISON: 07/11/22, 05/08/20, 12/28/18 TECHNIQUE: Synthesized CC and MLO projections of each breast. Tomosynthesis of each breast in the CC and MLO projections. ADDITIONAL IMAGING: None Computer-aided detection was employed with the iCAD [employer] AI 3-D. TISSUE DENSITY: Ther e are scattered areas of fibroglandular density. (BI-RADS [...] year. Mammography location: [facility] at [address], [address] -------- FINAL REPOR T -------- Dictated By: Eric Aaron Dictated Date: 08/21/2025 13:40 ET Assigned Physician: Eric Aaron Reviewed and Electronically Signed By: Eric Aaron Signed Date: 08/21/2025 14:42 ET Workstation ID: [id number] Transcribed By: Self Edit Transcribed Date: 08/21/2025 13:40 ET COMPREHENSIVE METABOLIC PANE L Reviewed date:06/03/2025 01:45:22 PM Interpretation: Performing Lab: Notes/Report: Sodium 140 133-145 mmol/L Potassium 4.3 3.5-5.5 mmol/L Chloride 108 96-110 mmol/L CO2 26 21-32 mmol/L Anion Gap 6 3-11 Glucose 81 70-100 mg/dL BUN 15 5-25 mg/dL Creatinine 0.96 0.50-1.10 mg/dL eGFR 65 >=60 mL/min/1.73m2 Calculation based on the Chronic Kidney Disease Epidemiology Collaboration (CKD-EPI) equation refit without adjustment for race. BUN/Creatinine Ratio 15.6 Calcium 9.4 8.5-10.5 mg/dL AST (SGOT) 12 10-42 unit/L ALT (SGPT) 14 10-60 unit/L Alkaline Phosphatase 89 42-121 unit/L Total Protein 7.4 6.0-8.0 g/dL Albumin 3.9 3.2-5.0 g/dL Total Bilirubin 0.3 0.0-1.4 mg/dL CBC WITH AUTO DIFFERENTIAL Reviewed date:06/03/2025 11:26:54 AM Interpretation: Performing Lab: Notes/Report: WBC 5.3 4.8-10.8 K/mcL RBC 4.50 3.80-4.80 M/mcL Hemoglobin 12.1 11.5-16.0 g/dL Hematocrit 38.1 35.0-47.0 % MCV 85.4 79.0-98.0 FL MCH 27.1 27.0-32.0 pcg MCHC 31.8 32.0-37.0 g/dL L RDW 14.7 11.0-15.0 % Platelets 329 130-400 K/mcL MPV 11.0 7.0-11.0 FL NRBC 0.0 <1.0 % NRBC Absolute 0.00 <0.10 K/mcL Neutrophils Relative 60.3 Lymphocytes Relative 29.5 Monocytes Relative 8.0 Eosinophils Relative 1.1 Basophils Relative 0.9 Immature Granulocytes Relative 0.2 Neutrophils Absolute 3.18 1.50-7.00 K/mcL Lymphocytes Absolute 1.56 1.00-5.00 K/mcL Monocytes Absolute 0.42 0.20-1.00 K/mcL Eosinophils Absolute 0.06 0.00-0.50 K/mcL Basophils Absolute 0.05 0.00-0.20 K/mcL Immature Granulocytes Absolute 0.01 0.00-0.03 K/mcL Reason For Referral Reason EEG Diagnosis 1 Encephalopathy, unsp ecified type (G93.40) Referral Organization [facility] [address] Referring Provider First Name REINIERPENELOPE Referring Provider Last Name LOZADA Referring Provider [facility] Referred Provider Specialty Neurology General Notes Maida Marcos 09:49:35 AM > Pt given Referral Priority Routine Reason Diagnosis 1 Acute left lumbar ra diculopathy (M54.16) Referral Organization [facility] [address] Referring Provider First Name [facility] Referring Provider Last Name [facility] Referring Provider [facility] Referred Provider Specialty Neurosurgery General Notes Maida Marcos 10:50:55 AM EST >Pt given phone [phone] referral faxed to [phone] Clinical Notes Artie Connolly 03:26:00 PM EST > resent to [phone] Referral Priority Routine Reason Pt needing endocrino logist see attached US results patient pending biospy Diagnosis 1 Thyroid nodule (E04. 1) Referral Organization [facility] [address] Referring Provider First Name JESUS Referring Provider Last Name [facility] Referring Provider [facility] Referred Provider Warner Traylor rly Referred Provider Specialty Endocrinolog y General Notes Kaylan Traylor ly A Endocrinology sent [address] , [address] [address], , Clinical Notes Deborah Dowd 10/07 01:43:35 PM EST >, faxed, Artie Connolly 10/16/2025 01:39:13 PM EST > The office confirmed receipt of the referral. They will contact the patient before the week ends Referral Priority Urgent Reason Degenerative changes , most prominent at L4-5 and L5-S1, without high-grade spinal or foraminal stenosis. Diagnosis 1 Degeneration of inte rvertebral disc of lumbar region, unspecified whether pain present (M51.369) Referral Organization [facility] [address] Referring Provider First Name [facility] Referring Provider Last Name NEVILLE Referring Provider Speciality Internal M edicine Referred Provider Specialty Pain Medicin e General Notes faxed to clarence landis , phone- [phone] , fax- [phone] Clinical Notes Deborah Dowd 10/20 10:55:02 AM EST >, Pt given phone number, Artie Connolly 11/10/2025 03:24:58 PM EST > Scheduled for 11/11 at 10 am. Pt aware Referral Priority Routine Medications Medication SIG (Take, Route, Frequency, Duration) Notes Start Date End Date Status Montelukast Sodium 10 MG Tablet TAKE 1 TABLET BY MOUTH EVERY DAY; Duration: 90 Active Topiramate 50 MG Tablet TAKE 1 TABLET BY MOUTH EVERY DAY FOR 30 DAYS; Duration: 90 Active Cetirizine HCl 10 MG Tablet TAKE 1 TABLET BY MOUTH EVERY DAY; Duration: 90 Active Pantoprazole Sodium 40 MG Tablet Delayed Release TAKE 1 TABLET BY MOUTH EVERY DAY; Duration: 90 Active Amoxicillin 500 MG Capsule 1 capsule Orally every 8 hrs; Duration: 10 days 05/21/2025 Active LORazepam 0.5 MG Tablet 1 tablet as need ed for anxiety Orally Twice a day; Duration: 30 days 09/10/2025 Active Fluticasone Propionate 50 MCG/ACT Suspension INSTILL 1 SPRAY INTO EACH NOSTRIL EVERY DAY FOR 30 DAYS 90; Duration: 90 Active Sertraline HCl 50 MG Tablet TAKE 1 TABLET BY MOUTH EVERY DAY FOR 90 DAYS; Duration: 90 Active Mounjaro 2.5 MG/0.5ML Solution Pen-injector 2.5mg Subcutaneous weekly; Duration: 30 days Not-Taking Mounjaro 5 MG/0.5ML Solution Auto-injector 5mg Subcutaneous weekly; Duration: 28 days 09/25/2025 Active Mounjaro 7.5 MG/0.5ML Solution Auto-injector 7.5mg Subcutaneous weekly; Duration: 30 days 09/26/2025 Active Breo Ellipta 100-25 MCG/ACT Aerosol Powder Breath Activated INHALE 1 PUFF BY MOUTH ONCE A DAY; Duration: 30 Active Mounjaro 5 MG/0.5ML Solution Auto-injector INJECT 1 PEN SUBCUTANEOUS WEEKLY 28 DAYS; Duration: 28 Not-Taking Propranolol HCl 80 MG Tablet TAKE 1 TABLET BY MOUTH TWICE A DAY; Duration: 90 Active SUMAtriptan Succinate 50 MG Tablet TAKE 1 TABLET BY MOUTH NEEDED, MAY REPEAT ONCE AFTER 2 HOURS IF NEEDED 30; Duration: 30 Active Immunizations Vaccine Route Administration Date Status Comme nts influenza IM Intramuscular 10/04/2022 Administered Social History Tobacco Use: Social History Observation Description Date Details (start date - stop date) Never Smoker NA - NA Social History Drugs/Alcohol: Social Info Question Answer Notes Drugs Have you used drugs other than those for medical reasons in the past 12 months? No Tobacco Use: Social Info Question Answer Notes Tobacco Use/Smoking Are you a nonsmoker Additional Details Category Social Info Options Details Drugs/Alcohol: Do you smoke marijuana? De nies Do you drink alcohol? No Section Notes: non smoker non smoker non alcohol drinker non smoker non alcohol drinker non smoker non smoker non smoker non smoker non smoker non alcohol drinker non smoker non alcohol drinker non smoker non alcohol drinker non smoker non alcohol drinker non smoker non alcohol drinker non smoker non alcohol drinker non smoker non alcohol drinker non smoker non alcohol drinker non smoker non alcohol drinker non smoker non alcohol drinker non smoker non smoker non smoker non smoker non smoker non alcohol drinker non smoker non alcohol drinker non smoker non alcohol drinker non smoker non alcohol drinker non smoker non alcohol drinker non smoker non alcohol drinker non smoker non alcohol drinker non smoker non alcohol drinker non smoker non alcohol drinker non smoker non alcohol drinker non smoker non alcohol drinker non smoker non alcohol drinker non smoker non alcohol drinker non smoker non alcohol drinker non smoker non alcohol drinker non smoker non alcohol drinker non smoker non alcohol drinker non smoker non alcohol drinker non smoker non alcohol drinker Problems Problem Type SNOMED Code ICD Code Onset Dates Problem Status W/U Status Risk Notes Problem Vitamin D deficiency (62647071) Vitamin D deficiency, unspecified (E55.9) Active confirmed Problem Obesity due to excess calories (265288854) Other obesity due to excess calories (E66.09) Active confirmed Problem Hyperlipidemia (21292345) Hyperlipidemia, unspecified (E78.5) Active confirmed Problem Generalized anxiety disorder (46364833) Generalized anxiety disorder (F41.1) Active confirmed Problem Spasmodic torticollis (68333718) Spasmodic torticollis (G24.3) Active confirmed Problem Migraine with aura (4599952) Migraine with aura, not intractable, without status migrainosus (G43.109) Active confirmed Problem Chronic pain (30451769) Other chronic pain (G89.29) Active confirmed Problem Otitis externa of right ear (5826514877953597 ) Unspecified otitis externa, right ear (H60.91) Active confirmed Problem Essential hypertension (33374895) Essential (primary) hypertension (I10) Active confirmed Problem Lower abdominal pain (52716391) Lower abdominal pain, unspecified (R10.30) Active confirmed Problem Adult health examination (177339983) Encounter for general adult medical examination without abnormal findings (Z00.00) Active confirmed Problem Lipid screening (281949422) Encounter for screening for lipoid disorders (Z13.220) Active confirmed Problem Prediabetes (982903754) Prediabetes (R73.03) Active confirmed Problem Diverticulitis (75093025) Diverticulitis (K57.92) Active confirmed referred for US of ureters and kidneys Problem Vertigo (504654712) Vertigo (R42) Active confirmed Problem Adult health examination (885463622) Adult general medical exam (Z00.00) Active confirmed Problem Dizziness (908369628) Dizziness (R42) Active confirmed Problem Sciatica (32601033) Sciatica, unspecified laterality (M54.30) Active confirmed Problem Memory loss (10507787) Memory loss (R41.3) Active confirmed Problem Hypothyroidism (60206613) Hypothyroidism, unspecified type (E03.9) Active confirmed Problem Vitamin D deficiency (74515080) Vitamin D deficiency (E55.9) Active confirmed Problem Thyroid nodule (101472203) Thyroid nodule (E04.1) Active confirmed Problem Diabetes mellitus screening (000596212) Diabetes mellitus screening (Z13.1) Active confirmed Problem Body mass index 30.00 to 34.99 (029911374958861) Body mass index [BMI] 32.0-32.9, adult (Z68.32) Active confirmed Problem Body mass index 30.00 to 34.99 (705346528323271) Body mass index [BMI] 34.0-34.9, adult (Z68.34) Active confirmed Problem Migraine without aura, not refractory (147364281) Migraine without aura and without status migrainosus, not intractable (G43.009) Active confirmed Problem Ataxia (97739700) Ataxia (R27.0) Active confirm ed Problem Obese class I (179576078399724) BMI 33.0-33.9,adult (Z68.33) Active confirmed Problem Acute frontal sinusitis (70850125) Acute non-recurrent frontal sinusitis (J01.10) Active confirmed Problem Major depression, single episode (67837005) Major depressive disorder with current active episode, unspecified depression episode severity, unspecified whether recurrent (F32.9) Active confirmed Problem Postmenopausal (54771826) Postmenopausal (Z78.0) Active confirmed Problem Osteoarthritis of knee (363240141) Osteoarthritis of both knees, unspecified osteoarthritis type (M17.0) Active confirmed Problem Vitamin B>12< deficiency anaemia (38297116) Anemia due to vitamin B12 deficiency, unspecified B12 deficiency type (D51.9) Active confirmed Problem Daytime somnolence (171064933591) Daytime somnolence (R40.0) Active confirmed Problem Sciatica (99813974) Acute right-sided low back pain with right-sided sciatica (M54.41) Active confirmed Problem Avitaminosis D (70310248) Avitaminosis D (E55.9) Active confirmed Problem Acute pharyngitis (220398186) Acute sore throat (J02.9) Active confirmed Problem Multiple thyroid nodules (704824504) Multiple thyroid nodules (E04.2) Active confirmed Problem Cough (finding) (45905389) Cough, unspecified type (R05.9) Active confirmed Problem Endocrine/metabol ic screening (735334358) Encounter for screening for endocrine disorder (Z13.29) Active confirmed Problem Lumbar radiculopathy (277837942) Acute left lumbar radiculopathy (M54.16) Active confirmed Problem Disorder of brain (46508227) Encephalopathy, unspecified type (G93.40) Active confirmed Problem Degeneration of lumbar intervertebral disc (disorder) (50423937) Degeneration of intervertebral disc of lumbar region, unspecified whether pain present (M51.369) Active confirmed Vital Signs Heart Rate 69 /min 09/26/2025 Oximetry 99 % 09/26/2025 Blood pressure diastolic 80 mm Hg 09/26/2025 Height 62 in 09/26/2025 Blood pressure systolic 132 mm Hg 09/26/2025 Weight 170.2 lbs 09/26/2025 BMI 31.13 kg/m2 09/26/2025 Encounters Encounter Location Date Provider Diagnosis [facility] [address] [address] 12/23/2024 JESUS CIFUENTES Strain of right subscapularis muscle, initial encounter S46.811A [facility] [address] [address] 01/27/2025 JESUS CIFUENTES Prediabetes R73.03 ; Other obesity due to excess calories E66.09 ; Other chronic pain G89.29 ; Generalized anxiety disorder F41.1 and Multiple thyroid nodules E04.2 [facility] [address] [address] 05/21/2025 JESUS CIFUENTES Encounter for examination of blood pressure without abnormal findings Z01.30 and Acute non-recurrent frontal sinusitis J01.10 [facility] [address] [address] 06/03/2025 JESUS CIFUENTES Encephalopathy, unspecified type G93.40 ; Memory loss or impairment R41.3 ; Anemia due to vitamin B12 deficiency, unspecified B12 deficiency type D51.9 and Encounter for examination of blood pressure without abnormal findings Z01.30 [facility] [address] [address] 06/27/2025 JESUS CIFUENTES Annual physical exam Z00.00 ; Encounter for screening for depression Z13.31 ; Encounter for screening for other disorder Z13.89 ; Advanced directives, counseling/discussion Z71.89 ; Prediabetes R73.03 ; Other obesity due to excess calories E66.09 ; Other chronic pain G89.29 ; Generalized anxiety disorder F41.1 ; Multiple thyroid nodules E04.2 ; Memory loss R41.3 and Breast cancer screening by mammogram Z12.31 [facility] [address] [address] 09/26/2025 JESUS CIFUENTES Prediabetes R73.03 ; Other obesity due to excess calories E66.09 ; Other chronic pain G89.29 ; Generalized anxiety disorder F41.1 ; Multiple thyroid nodules E04.2 ; Memory loss R41.3 and Acute left lumbar radiculopathy M54.16 [facility] [address] [place] [address] 12/23/[address] [facility] [address] [place] [address] 04/09/2025 JESUS BORHOT [facility] [address] [facility] [place] [address] [place] [address] 05/21/2025 TALAL LOZADA [facility] [address] 06/02/2025 JESUS BORHOT [facility] [address] [address] 06/03/[address] [facility] [address] [place] [address] 06/06/2025 JESUS BORHOT [facility] [address] 08/07/2025 JESUS BORHOT Encounter for screen ing for osteoporosis Z13.820 and Encounter for screening mammogram for malignant neoplasm of breast Z12.[address] [facility] [address] [facility] [address] 09/10/2025 JESUS BORHOT Prediabetes R73.03 [facility] [address] 10/07/2025 JESUS BORHOT Thyroid nodule E04.[address] [facility] [address] [place] [address] 10/16/20[address]US BORHOT [facility] [address] [place] [address] 10/20/2025 [address]ZADA [facility] [address] [place] [address] 10/23/2025 JESUS BORHOT [facility] [address] 11/04/2025 JESUS DEANDREHOT Assessments Encounter Date Diagnosis (ICD Code) Assessment Notes Treatment Notes Treatment Clinical Notes Section Notes 12/23/2024 Strain of right subscapularis muscle, initial encounter (ICD-10 - S46.811A) Topical diclofenac Heat Of note, some information is being carried forward from prior records for informational purposes only and is being cited so that efficiency, safety and quality of the patient's care is not compromised This note was prepared using voice recognition software and direct typing Please excuse inadvertent front office representative or typing errors, or uncorrected word substitutions Although every attempt has been made by the provider to proofread this document, occasional misspellings and typographical errors may still be present Due to the previous pandemic, and the use of personal protective equipment (PPE) This may decrease voice recognition accuracy Inadvertent front office representative errors may occur 01/27/2025 Prediabetes (ICD-10 - R73.03) Acute Concerns/Problem List: 01/27/2025 Increase Mounjaro to 5 mg. 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 Continue Zoloft Thyroid ultrasound March 2025 _update comprehensive labs Of note, some information is being carried forward from prior records for informational purposes only and is being cited so that efficiency, safety and quality of the patient's care is not compromised This note was prepared using voice recognition software and direct typing Please excuse inadvertent front office representative or typing errors, or uncorrected word substitutions Although every attempt has been made by the provider to proofread this document, occasional misspellings and typographical errors may still be present Due to the previous pandemic, and the use of personal protective equipment (PPE) This may decrease voice recognition accuracy Inadvertent front office representative errors may occur 06/03/2025 Memory loss or impairment (ICD-10 - R41.3) MRI of the brain without RPR methylmalonic acid and other labs EEG Referral neurology Do not drive till further notice Of note, some information is being carried forward from prior records for informational purposes only and is being cited so that efficiency, safety and quality of the patient's care is not compromised This note was prepared using voice recognition software and direct typing Please excuse inadvertent front office representative or typing errors, or uncorrected word substitutions Although every attempt has been made by the provider to proofread this document, occasional misspellings and typographical errors may still be present Due to the previous pandemic, and the use of personal protective equipment (PPE) This may decrease voice recognition accuracy Inadvertent front office representative errors may occur 06/03/2025 Encephalopathy, unspecified type (ICD-10 - G93.40) MRI of the brain without RPR methylmalonic acid and other labs EEG Referral neurology Do not drive till further notice Of note, some information is being carried forward from prior records for informational purposes only and is being cited so that efficiency, safety and quality of the patient's care is not compromised This note was prepared using voice recognition software and direct typing Please excuse inadvertent front office representative or typing errors, or uncorrected word substitutions Although every attempt has been made by the provider to proofread this document, occasional misspellings and typographical errors may still be present Due to the previous pandemic, and the use of personal protective equipment (PPE) This may decrease voice recognition accuracy Inadvertent front office representative errors may occur 05/21/2025 Encounter for examination of blood pressure without abnormal findings (ICD-10 - Z01.30) cont flonase/add on amox steam supportive care Antibiotic stewardship is the effort to measure and improve how antibiotics are prescribed by clinicians and used by patients. Improving antibiotic prescribing and use is critical to effectively treat infections via evidenced based practice, protect patients from harms caused by unnecessary antibiotic use, and combat antibiotic resistance. What is an example of antibiotic stewardship? That includes prescribing antibiotics only when they are needed (i.e., for bacterial infections, not viral ones), prescribing the appropriate antibiotics for the diagnosed infection, and prescribing the right dose and duration of antibiotic treatment, among other things. 05/21/2025 Acute non-recurrent frontal sinusitis (ICD-10 - J01.10) cont flonase/add on amox steam supportive care Antibiotic stewardship is the effort to measure and improve how antibiotics are prescribed by clinicians and used by patients. Improving antibiotic prescribing and use is critical to effectively treat infections via evidenced based practice, protect patients from harms caused by unnecessary antibiotic use, and combat antibiotic resistance. What is an example of antibiotic stewardship? That includes prescribing antibiotics only when they are needed (i.e., for bacterial infections, not viral ones), prescribing the appropriate antibiotics for the diagnosed infection, and prescribing the right dose and duration of antibiotic treatment, among other things. 06/27/2025 Encounter for screening for depression (ICD-10 - Z13.31) Acute Concerns/Problem List: 06/27/2025 _update mammography Will get an updated thyroid ultrasound and follow-up Continue 5 mg of Mounjaro Pulmonology managing DONNA and asthma, stable on Breo daily We discussed Zoloft and discontinuation, she will remain on it for the time being Memory loss, followed by [facility] neurology, diagnostics reviewed potentially getting BETA amyloid testing Of note, some information is being carried forward from prior records for informational purposes only and is being cited so that efficiency, safety and quality of the patient's care is not compromised This note was prepared using voice recognition software and direct typing Please excuse inadvertent front office representative or typing errors, or uncorrected word substitutions Although every attempt has been made by the provider to proofread this document, occasional misspellings and typographical errors may still be present Due to the previous pandemic, and the use of personal protective equipment (PPE) This may decrease voice recognition accuracy Inadvertent front office representative errors may occur 06/27/2025 Annual physical exam (ICD-10 - Z00.00) Acute Concerns/Problem List: 06/27/2025 _update mammography Will get an updated thyroid ultrasound and follow-up Continue 5 mg of Mounjaro Pulmonology managing DONNA and asthma, stable on Breo daily We discussed Zoloft and discontinuation, she will remain on it for the time being Memory loss, followed by [facility] neurology, diagnostics reviewed potentially getting BETA amyloid testing Of note, some information is being carried forward from prior records for informational purposes only and is being cited so that efficiency, safety and quality of the patient's care is not compromised This note was prepared using voice recognition software and direct typing Please excuse inadvertent front office representative or typing errors, or uncorrected word substitutions Although every attempt has been made by the provider to proofread this document, occasional misspellings and typographical errors may still be present Due to the previous pandemic, and the use of personal protective equipment (PPE) This may decrease voice recognition accuracy Inadvertent front office representative errors may occur 08/07/2025 Encounter for screening for osteoporosis (ICD-10 - Z13.820) 09/10/2025 Prediabetes (ICD-10 - R73.03) 09/26/2025 Other obesity due to excess calories (ICD-10 - E66.09) Acute Concerns/Problem List: 09/26/2025 Patient is scheduled to get thyroid ultrasound later this month for 6-month surveillance follow-up Stressed the importance of following up on this Will increase Mounjaro 7.5 mg Referral to neurosurgery where she had her original surgery with Dr. Drake, will get a lumbar spine MRI since it has been many years Pulmonology managing DONNA and asthma, stable on Breo daily We discussed Zoloft and discontinuation, she will remain on it for the time being Memory loss, followed by [facility] neurology, diagnostics reviewed potentially getting BETA amyloid testing Of note, some information is being carried forward from prior records for informational purposes only and is being cited so that efficiency, safety and quality of the patient's care is not compromised This note was prepared using voice recognition software and direct typing Please excuse inadvertent front office representative or typing errors, or uncorrected word substitutions Although every attempt has been made by the provider to proofread this document, occasional misspellings and typographical errors may still be present Due to the previous pandemic, and the use of personal protective equipment (PPE) This may decrease voice recognition accuracy Inadvertent front office representative errors may occur 09/26/2025 Prediabetes (ICD-10 - R73.03) Acute Concerns/Problem List: 09/26/2025 Patient is scheduled to get thyroid ultrasound later this month for 6-month surveillance follow-up Stressed the importance of following up on this Will increase Mounjaro 7.5 mg Referral to neurosurgery where she had her original surgery with Dr. Drake, will get a lumbar spine MRI since it has been many years Pulmonology managing DONNA and asthma, stable on Breo daily We discussed Zoloft and discontinuation, she will remain on it for the time being Memory loss, followed by [facility] neurology, diagnostics reviewed potentially getting BETA amyloid testing Of note, some information is being carried forward from prior records for informational purposes only and is being cited so that efficiency, safety and quality of the patient's care is not compromised This note was prepared using voice recognition software and direct typing Please excuse inadvertent front office representative or typing errors, or uncorrected word substitutions Although every attempt has been made by the provider to proofread this document, occasional misspellings and typographical errors may still be present Due to the previous pandemic, and the use of personal protective equipment (PPE) This may decrease voice recognition accuracy Inadvertent front office representative errors may occur 10/07/2025 Thyroid nodule (ICD-10 - E04.1) 08/07/2025 Encounter for screening mammogram for malignant neoplasm of breast (ICD-10 - Z12.31) 09/26/2025 Other chronic pain (ICD-10 - G89.29) Acute Concerns/Problem List: 09/26/2025 Patient is scheduled to get thyroid ultrasound later this month for 6-month surveillance follow-up Stressed the importance of following up on this Will increase Mounjaro 7.5 mg Referral to neurosurgery where she had her original surgery with Dr. Drake, will get a lumbar spine MRI since it has been many years Pulmonology managing DONNA and asthma, stable on Breo daily We discussed Zoloft and discontinuation, she will remain on it for the time being Memory loss, followed by [facility] neurology, diagnostics reviewed potentially getting BETA amyloid testing Of note, some information is being carried forward from prior records for informational purposes only and is being cited so that efficiency, safety and quality of the patient's care is not compromised This note was prepared using voice recognition software and direct typing Please excuse inadvertent front office representative or typing errors, or uncorrected word substitutions Although every attempt has been made by the provider to proofread this document, occasional misspellings and typographical errors may still be present Due to the previous pandemic, and the use of personal protective equipment (PPE) This may decrease voice recognition accuracy Inadvertent front office representative errors may occur 06/27/2025 Encounter for screening for other disorder (ICD-10 - Z13.89) Acute Concerns/Problem List: 06/27/2025 _update mammography Will get an updated thyroid ultrasound and follow-up Continue 5 mg of Mounjaro Pulmonology managing DONNA and asthma, stable on Breo daily We discussed Zoloft and discontinuation, she will remain on it for the time being Memory loss, followed by [facility] neurology, diagnostics reviewed potentially getting BETA amyloid testing Of note, some information is being carried forward from prior records for informational purposes only and is being cited so that efficiency, safety and quality of the patient's care is not compromised This note was prepared using voice recognition software and direct typing Please excuse inadvertent front office representative or typing errors, or uncorrected word substitutions Although every attempt has been made by the provider to proofread this document, occasional misspellings and typographical errors may still be present Due to the previous pandemic, and the use of personal protective equipment (PPE) This may decrease voice recognition accuracy Inadvertent front office representative errors may occur 06/03/2025 Anemia due to vitamin B12 deficiency, unspecified B12 deficiency type (ICD-10 - D51.9) MRI of the brain without RPR methylmalonic acid and other labs EEG Referral neurology Do not drive till further notice Of note, some information is being carried forward from prior records for informational purposes only and is being cited so that efficiency, safety and quality of the patient's care is not compromised This note was prepared using voice recognition software and direct typing Please excuse inadvertent front office representative or typing errors, or uncorrected word substitutions Although every attempt has been made by the provider to proofread this document, occasional misspellings and typographical errors may still be present Due to the previous pandemic, and the use of personal protective equipment (PPE) This may decrease voice recognition accuracy Inadvertent front office representative errors may occur 01/27/2025 Other obesity due to excess calories (ICD-10 - E66.09) Acute Concerns/Problem List: 01/27/2025 Increase Mounjaro to 5 mg. 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 Continue Zoloft Thyroid ultrasound March 2025 _update comprehensive labs Of note, some information is being carried forward from prior records for informational purposes only and is being cited so that efficiency, safety and quality of the patient's care is not compromised This note was prepared using voice recognition software and direct typing Please excuse inadvertent front office representative or typing errors, or uncorrected word substitutions Although every attempt has been made by the provider to proofread this document, occasional misspellings and typographical errors may still be present Due to the previous pandemic, and the use of personal protective equipment (PPE) This may decrease voice recognition accuracy Inadvertent front office representative errors may occur 01/27/2025 Other chronic pain (ICD-10 - G89.29) Acute Concerns/Problem List: 01/27/2025 Increase Mounjaro to 5 mg. 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 Continue Zoloft Thyroid ultrasound March 2025 _update comprehensive labs Of note, some information is being carried forward from prior records for informational purposes only and is being cited so that efficiency, safety and quality of the patient's care is not compromised This note was prepared using voice recognition software and direct typing Please excuse inadvertent front office representative or typing errors, or uncorrected word substitutions Although every attempt has been made by the provider to proofread this document, occasional misspellings and typographical errors may still be present Due to the previous pandemic, and the use of personal protective equipment (PPE) This may decrease voice recognition accuracy Inadvertent front office representative errors may occur 06/03/2025 Encounter for examination of blood pressure without abnormal findings (ICD-10 - Z01.30) MRI of the brain without RPR methylmalonic acid and other labs EEG Referral neurology Do not drive till further notice Of note, some information is being carried forward from prior records for informational purposes only and is being cited so that efficiency, safety and quality of the patient's care is not compromised This note was prepared using voice recognition software and direct typing Please excuse inadvertent front office representative or typing errors, or uncorrected word substitutions Although every attempt has been made by the provider to proofread this document, occasional misspellings and typographical errors may still be present Due to the previous pandemic, and the use of personal protective equipment (PPE) This may decrease voice recognition accuracy Inadvertent front office representative errors may occur 09/26/2025 Generalized anxiety disorder (ICD-10 - F41.1) Acute Concerns/Problem List: 09/26/2025 Patient is scheduled to get thyroid ultrasound later this month for 6-month surveillance follow-up Stressed the importance of following up on this Will increase Mounjaro 7.5 mg Referral to neurosurgery where she had her original surgery with Dr. Drake, will get a lumbar spine MRI since it has been many years Pulmonology managing DONNA and asthma, stable on Breo daily We discussed Zoloft and discontinuation, she will remain on it for the time being Memory loss, followed by [facility] neurology, diagnostics reviewed potentially getting BETA amyloid testing Of note, some information is being carried forward from prior records for informational purposes only and is being cited so that efficiency, safety and quality of the patient's care is not compromised This note was prepared using voice recognition software and direct typing Please excuse inadvertent front office representative or typing errors, or uncorrected word substitutions Although every attempt has been made by the provider to proofread this document, occasional misspellings and typographical errors may still be present Due to the previous pandemic, and the use of personal protective equipment (PPE) This may decrease voice recognition accuracy Inadvertent front office representative errors may occur 06/27/2025 Advanced directives, counseling/discus teto (ICD-10 - Z71.89) Acute Concerns/Problem List: 06/27/2025 _update mammography Will get an updated thyroid ultrasound and follow-up Continue 5 mg of Mounjaro Pulmonology managing DONNA and asthma, stable on Breo daily We discussed Zoloft and discontinuation, she will remain on it for the time being Memory loss, followed by [facility] neurology, diagnostics reviewed potentially getting BETA amyloid testing Of note, some information is being carried forward from prior records for informational purposes only and is being cited so that efficiency, safety and quality of the patient's care is not compromised This note was prepared using voice recognition software and direct typing Please excuse inadvertent front office representative or typing errors, or uncorrected word substitutions Although every attempt has been made by the provider to proofread this document, occasional misspellings and typographical errors may still be present Due to the previous pandemic, and the use of personal protective equipment (PPE) This may decrease voice recognition accuracy Inadvertent front office representative errors may occur 09/26/2025 Multiple thyroid nodules (ICD-10 - E04.2) Acute Concerns/Problem List: 09/26/2025 Patient is scheduled to get thyroid ultrasound later this month for 6-month surveillance follow-up Stressed the importance of following up on this Will increase Mounjaro 7.5 mg Referral to neurosurgery where she had her original surgery with Dr. Drake, will get a lumbar spine MRI since it has been many years Pulmonology managing DONNA and asthma, stable on Breo daily We discussed Zoloft and discontinuation, she will remain on it for the time being Memory loss, followed by [facility] neurology, diagnostics reviewed potentially getting BETA amyloid testing Of note, some information is being carried forward from prior records for informational purposes only and is being cited so that efficiency, safety and quality of the patient's care is not compromised This note was prepared using voice recognition software and direct typing Please excuse inadvertent front office representative or typing errors, or uncorrected word substitutions Although every attempt has been made by the provider to proofread this document, occasional misspellings and typographical errors may still be present Due to the previous pandemic, and the use of personal protective equipment (PPE) This may decrease voice recognition accuracy Inadvertent front office representative errors may occur 06/27/2025 Prediabetes (ICD-10 - R73.03) Acute Concerns/Problem List: 06/27/2025 _update mammography Will get an updated thyroid ultrasound and follow-up Continue 5 mg of Mounjaro Pulmonology managing DONNA and asthma, stable on Breo daily We discussed Zoloft and discontinuation, she will remain on it for the time being Memory loss, followed by [facility] neurology, diagnostics reviewed potentially getting BETA amyloid testing Of note, some information is being carried forward from prior records for informational purposes only and is being cited so that efficiency, safety and quality of the patient's care is not compromised This note was prepared using voice recognition software and direct typing Please excuse inadvertent front office representative or typing errors, or uncorrected word substitutions Although every attempt has been made by the provider to proofread this document, occasional misspellings and typographical errors may still be present Due to the previous pandemic, and the use of personal protective equipment (PPE) This may decrease voice recognition accuracy Inadvertent front office representative errors may occur 01/27/2025 Generalized anxiety disorder (ICD-10 - F41.1) Acute Concerns/Problem List: 01/27/2025 Increase Mounjaro to 5 mg. 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 Continue Zoloft Thyroid ultrasound March 2025 _update comprehensive labs Of note, some information is being carried forward from prior records for informational purposes only and is being cited so that efficiency, safety and quality of the patient's care is not compromised This note was prepared using voice recognition software and direct typing Please excuse inadvertent front office representative or typing errors, or uncorrected word substitutions Although every attempt has been made by the provider to proofread this document, occasional misspellings and typographical errors may still be present Due to the previous pandemic, and the use of personal protective equipment (PPE) This may decrease voice recognition accuracy Inadvertent front office representative errors may occur 01/27/2025 Multiple thyroid nodules (ICD-10 - E04.2) Acute Concerns/Problem List: 01/27/2025 Increase Mounjaro to 5 mg. 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 Continue Zoloft Thyroid ultrasound March 2025 _update comprehensive labs Of note, some information is being carried forward from prior records for informational purposes only and is being cited so that efficiency, safety and quality of the patient's care is not compromised This note was prepared using voice recognition software and direct typing Please excuse inadvertent front office representative or typing errors, or uncorrected word substitutions Although every attempt has been made by the provider to proofread this document, occasional misspellings and typographical errors may still be present Due to the previous pandemic, and the use of personal protective equipment (PPE) This may decrease voice recognition accuracy Inadvertent front office representative errors may occur 06/27/2025 Other obesity due to excess calories (ICD-10 - E66.09) Acute Concerns/Problem List: 06/27/2025 _update mammography Will get an updated thyroid ultrasound and follow-up Continue 5 mg of Mounjaro Pulmonology managing DONNA and asthma, stable on Breo daily We discussed Zoloft and discontinuation, she will remain on it for the time being Memory loss, followed by [facility], diagnostics reviewed potentially getting BETA amyloid testing Of note, some information is being carried forward from prior records for informational purposes only and is being cited so that efficiency, safety and quality of the patient's care is not compromised This note was prepared using voice recognition software and direct typing Please excuse inadvertent front office representative or typing errors, or uncorrected word substitutions Although every attempt has been made by the provider to proofread this document, occasional misspellings and typographical errors may still be present Due to the previous pandemic, and the use of personal protective equipment (PPE) This may decrease voice recognition accuracy Inadvertent front office representative errors may occur 09/26/2025 Memory loss (ICD-10 - R41.3) Acute Concerns/Problem List: 09/26/2025 Patient is scheduled to get thyroid ultrasound later this month for 6-month surveillance follow-up Stressed the importance of following up on this Will increase Mounjaro 7.5 mg Referral to neurosurgery where she had her original surgery with Dr. Drake, will get a lumbar spine MRI since it has been many years Pulmonology managing DONNA and asthma, stable on Breo daily We discussed Zoloft and discontinuation, she will remain on it for the time being Memory loss, followed by [facility], diagnostics reviewed potentially getting BETA amyloid testing Of note, some information is being carried forward from prior records for informational purposes only and is being cited so that efficiency, safety and quality of the patient's care is not compromised This note was prepared using voice recognition software and direct typing Please excuse inadvertent front office representative or typing errors, or uncorrected word substitutions Although every attempt has been made by the provider to proofread this document, occasional misspellings and typographical errors may still be present Due to the previous pandemic, and the use of personal protective equipment (PPE) This may decrease voice recognition accuracy Inadvertent front office representative errors may occur 09/26/2025 Acute left lumbar radiculopathy (ICD-10 - M54.16) Acute Concerns/Problem List: 09/26/2025 Patient is scheduled to get thyroid ultrasound later this month for 6-month surveillance follow-up Stressed the importance of following up on this Will increase Mounjaro 7.5 mg Referral to neurosurgery where she had her original surgery with Dr. Drake, will get a lumbar spine MRI since it has been many years Pulmonology managing DONNA and asthma, stable on Breo daily We discussed Zoloft and discontinuation, she will remain on it for the time being Memory loss, followed by [facility], diagnostics reviewed potentially getting BETA amyloid testing Of note, some information is being carried forward from prior records for informational purposes only and is being cited so that efficiency, safety and quality of the patient's care is not compromised This note was prepared using voice recognition software and direct typing Please excuse inadvertent front office representative or typing errors, or uncorrected word substitutions Although every attempt has been made by the provider to proofread this document, occasional misspellings and typographical errors may still be present Due to the previous pandemic, and the use of personal protective equipment (PPE) This may decrease voice recognition accuracy Inadvertent front office representative errors may occur 06/27/2025 Other chronic pain (ICD-10 - G89.29) Acute Concerns/Problem List: 06/27/2025 _update mammography Will get an updated thyroid ultrasound and follow-up Continue 5 mg of Mounjaro Pulmonology managing DONNA and asthma, stable on Breo daily We discussed Zoloft and discontinuation, she will remain on it for the time being Memory loss, followed by [facility], diagnostics reviewed potentially getting BETA amyloid testing Of note, some information is being carried forward from prior records for informational purposes only and is being cited so that efficiency, safety and quality of the patient's care is not compromised This note was prepared using voice recognition software and direct typing Please excuse inadvertent front office representative or typing errors, or uncorrected word substitutions Although every attempt has been made by the provider to proofread this document, occasional misspellings and typographical errors may still be present Due to the previous pandemic, and the use of personal protective equipment (PPE) This may decrease voice recognition accuracy Inadvertent front office representative errors may occur 06/27/2025 Generalized anxiety disorder (ICD-10 - F41.1) Acute Concerns/Problem List: 06/27/2025 _update mammography Will get an updated thyroid ultrasound and follow-up Continue 5 mg of Mounjaro Pulmonology managing DONNA and asthma, stable on Breo daily We discussed Zoloft and discontinuation, she will remain on it for the time being Memory loss, followed by [facility] neurology, diagnostics reviewed potentially getting BETA amyloid testing Of note, some information is being carried forward from prior records for informational purposes only and is being cited so that efficiency, safety and quality of the patient's care is not compromised This note was prepared using voice recognition software and direct typing Please excuse inadvertent front office representative or typing errors, or uncorrected word substitutions Although every attempt has been made by the provider to proofread this document, occasional misspellings and typographical errors may still be present Due to the previous pandemic, and the use of personal protective equipment (PPE) This may decrease voice recognition accuracy Inadvertent front office representative errors may occur 06/27/2025 Multiple thyroid nodules (ICD-10 - E04.2) Acute Concerns/Problem List: 06/27/2025 _update mammography Will get an updated thyroid ultrasound and follow-up Continue 5 mg of Mounjaro Pulmonology managing DONNA and asthma, stable on Breo daily We discussed Zoloft and discontinuation, she will remain on it for the time being Memory loss, followed by [facility] neurology, diagnostics reviewed potentially getting BETA amyloid testing Of note, some information is being carried forward from prior records for informational purposes only and is being cited so that efficiency, safety and quality of the patient's care is not compromised This note was prepared using voice recognition software and direct typing Please excuse inadvertent front office representative or typing errors, or uncorrected word substitutions Although every attempt has been made by the provider to proofread this document, occasional misspellings and typographical errors may still be present Due to the previous pandemic, and the use of personal protective equipment (PPE) This may decrease voice recognition accuracy Inadvertent front office representative errors may occur 06/27/2025 Memory loss (ICD-10 - R41.3) Acute Concerns/Problem List: 06/27/2025 _update mammography Will get an updated thyroid ultrasound and follow-up Continue 5 mg of Mounjaro Pulmonology managing DONNA and asthma, stable on Breo daily We discussed Zoloft and discontinuation, she will remain on it for the time being Memory loss, followed by [facility], diagnostics reviewed potentially getting BETA amyloid testing Of note, some information is being carried forward from prior records for informational purposes only and is being cited so that efficiency, safety and quality of the patient's care is not compromised This note was prepared using voice recognition software and direct typing Please excuse inadvertent front office representative or typing errors, or uncorrected word substitutions Although every attempt has been made by the provider to proofread this document, occasional misspellings and typographical errors may still be present Due to the previous pandemic, and the use of personal protective equipment (PPE) This may decrease voice recognition accuracy Inadvertent front office representative errors may occur 06/27/2025 Breast cancer screening by mammogram (ICD-10 - Z12.31) Acute Concerns/Problem List: 06/27/2025 _update mammography Will get an updated thyroid ultrasound and follow-up Continue 5 mg of Mounjaro Pulmonology managing DONNA and asthma, stable on Breo daily We discussed Zoloft and discontinuation, she will remain on it for the time being Memory loss, followed by [facility] neurology, diagnostics reviewed potentially getting BETA amyloid testing Of note, some information is being carried forward from prior records for informational purposes only and is being cited so that efficiency, safety and quality of the patient's care is not compromised This note was prepared using voice recognition software and direct typing Please excuse inadvertent front office representative or typing errors, or uncorrected word substitutions Although every attempt has been made by the provider to proofread this document, occasional misspellings and typographical errors may still be present Due to the previous pandemic, and the use of personal protective equipment (PPE) This may decrease voice recognition accuracy Inadvertent front office representative errors may occur Plan Of Treatment Pending Test Test Name Order Date CT Scan : Abdomen and Pelvis with contra st 11/17/2022 Mammogram 06/27/2025 CT Scan : Wrist 04/05/2023 RPR 06/03/2025 MAMMOGRAM, SCREENING 08/07/2025 Bone Density 08/07/2025 Bone Density 03/04/2021 Bone Density 02/07/2023 MRI : Abdomen with and without Contrast 02/08/2022 MRI : Brain without Contrast 02/03/2024 MRI : Brain without Contrast 06/03/2025 25OH VITAMIN D 02/07/2023 CBC (COMPLETE BLOOD COUNT) 02/07/2023 COMPREHENSIVE METABOLIC PANEL 02/07/2023 HEMOGLOBIN A1C 02/07/2023 HEMOGLOBIN A1C 04/01/2021 LIPID PANEL 02/07/2023 TSH 02/07/2023 URINALYSIS W/REFLEX CULTURE 08/17/2023 CT Abdomen w/o Contrast 11/11/2022 XR Humerus 2+ Views LT 04/05/2023 XR Knee 3 Views RT 08/26/2021 VITAMIN B12 06/03/2025 LIPID PANEL, STANDARD 02/24/2022 LIPID PANEL, STANDARD 03/07/2024 LIPID PANEL, STANDARD 01/27/2025 COMPREHENSIVE METABOLIC PANEL 01/27/2025 COMPREHENSIVE METABOLIC PANEL 03/07/2024 COMPREHENSIVE METABOLIC PANEL 02/24/2022 COMPREHENSIVE METABOLIC PANEL 06/03/2025 CBC (INCLUDES DIFF/PLT) 06/03/2025 CBC (INCLUDES DIFF/PLT) 02/24/2022 CBC (INCLUDES DIFF/PLT) 03/07/2024 CBC (INCLUDES DIFF/PLT) 01/27/2025 URINALYSIS, COMPLETE 01/27/2025 URINALYSIS, COMPLETE 02/24/2022 URINALYSIS, COMPLETE W/REFLEX TO CULTURE 03/07/2024 HEMOGLOBIN A1c 03/07/2024 HEMOGLOBIN A1c 01/27/2025 HEMOGLOBIN A1c 02/24/2022 INSULIN 02/24/2022 TSH 02/24/2022 TSH 03/07/2024 TSH 06/03/2025 TSH W/REFLEX TO FT4 01/27/2025 VITAMIN D,25-OH,TOTAL,IA 01/27/2025 VITAMIN D,25-OH,TOTAL,IA 03/07/2024 METHYLMALONIC ACID 06/03/2025 MR Lumbar Spine WO 09/26/2025 COMPLETE URINALYSIS 02/07/2023 Shoulder Min 2 Views Left 02/22/2023 US Thyroid 04/14/2024 Cervical Spine 4 or 5 Views 02/22/2023 FNA Biopsy US 1st Lesion 10/07/2025 US Thyroid 06/27/2025 Future Test Test Name Order Date CBC (COMPLETE BLOOD COUNT) 01/21/2021 COMPREHENSIVE METABOLIC PANEL 01/21/2021 HEMOGLOBIN A1C 01/21/2021 LIPID PANEL 01/21/2021 URINALYSIS, COMPLETE 01/21/2021 Insurance Providers Payer Name Payer Address Payer Phone Subscriber Number Group Number Insured Name Patient Relationship to Insured Coverage Start Date Coverage End Date [employer] or Options [address] [place] [address] [id number] REBECCA DIAZ Self - patient is the insured Medical (General) History Medical History History ICD Code seasonal allergies depression Surgical History Surgery Date(Month/Year) hysterectomy gallbladder
--- OUTSIDE RECORDS SUMMARY | 2025-11-11 13:21 | XMS_ITS | Continuity of Care Document ---
Author Organization [facility] [address] [address] Phone [phone] Care Team Providers Care Scroll Assembler Name Role Phone Kay Lanza NP Care Team Information Warehouse Coordinator [phone] Social History Type Date Description Comments Sex Female Sex Unknown Medical Devices Description No Information Available Encounters Description No Information Available Assessments Description No Information Available Plan of Treatment Future Appointment(s):* 11/20/2025 2:45 pm - Angelique Velez NP at Main Office Functional Status Description No Information Available Mental Status Description No Information Available Referrals Description No Information Available
--- OUTSIDE RECORDS SUMMARY | 2025-11-11 13:21 | XMS_ITS | Patient Health Record ---
Author Organization [facility] Address [address] [place] [id number] Care Team Providers Care Bean Sprout Grower Name Role Phone Mariano New Ranjeet [phone] Reason For Referral No Information Plan Of Treatment No Information
== END 2025-11-11 10:27 | disposition home or self-care (01) ==
LOC: HO.HPHYS 10:07
PROVIDERS: PCP Internal Medicine; Visit Provider Physician Assistant
DX: M46.1 Sacroiliitis, not elsewhere classified (principal); M47.816 Spondylosis without myelopathy or radiculopathy, lumbar region
CPT/HCPCS: 99204

== ENCOUNTER → 2025-11-11 10:06 | Outpatient (BNVA) | payer OTHER, SELFPAY | PROVIDERS: PCP Internal Medicine; Visit Provider Physician Assistant | DX: M47.816 Spondylosis without myelopathy or radiculopathy, lumbar region (principal); M46.1 Sacroiliitis, not elsewhere classified | CPT/HCPCS: 99202 ==